=== PATIENT | female | born 1950 | race Caucasian/White ===

== ENCOUNTER 2017-06-20 10:25 | Emergency (ER) | payer OTHER ==
[~2017-06-20] VITALS: Ht 154.9 cm; Wt 174.6 kg
[~2017-06-20 10:25] MED LIST: ADULT LOW DOSE81 MG PO; ADVAIR 250-501 EACH IH; ALBUTEROL INHAL17 GM IH; ALBUTEROL2.5 MG/0.1 IH; ALBUTEROL2.5 MG/31 IH; AMARYL4 MG PO; AVANDIA; BYETTA; CLARITIN10 MG PO; DIOVAN320 MG PO; GLUCOPHAGE1000 MG PO; HUMALOG100 UNIT/1 SQ; LANTUS SC; LEVOXYL200 MCG PO; LORTABELXR PO; METOLAZONE 5 MG5 M1 PO; PREDNISONE50 MG PO; SINGULAIR 10 MG10 M1 PO; ZANTAC 150MG T150 M1 PO; ZETIA10 MG PO; ZPAK PO; [UNRECOGNIZED DRUG - OTHER]
[2017-06-20 11:36] VITALS: BP 153/53
== END 2017-06-20 12:17 | disposition home or self-care (01) ==
LOC: ER 10:25
DX: M25.561 Pain in right knee (principal); Z88.8 Allergy status to other drugs, medicaments and biological substances; J45.909 Unspecified asthma, uncomplicated; E11.9 Type 2 diabetes mellitus without complications; G47.30 Sleep apnea, unspecified; W19.XXXA Unspecified fall, initial encounter; Y93.89 Activity, other specified; Y92.22 Religious institution as the place of occurrence of the external cause; Y99.8 Other external cause status

== ENCOUNTER 2017-06-24 08:31 | Inpatient (IN) | payer OTHER ==
[~2017-06-24] VITALS: Ht 154.9 cm; Wt 170.7 kg
--- NOTE | ~2017-06-24 | EKG ---
[address] [place] [address] ELECTROCARDIOGRAM REPORT Name: PERKINSNELDA Room #: 209- ADM IN M.R.#: [id number] Admission: 06/24/17 Attend Phys: Wesley Meeks DO Discharge: Date of : 50 Report #: [id number] THIS REPORT FOR: //name// [facility] Test Date: 2017-06-25 Test Time: 09:25:08 Pat Name: NELDA PERKINS Department: Room: 209 P Gender: F Die Maker Trim: MILLI : 1950 Requested By: John Croft Order Number: [id number] MD: John Croft Measurements Intervals [place] Rate: 81 P: 74 WA: 195 QRS: 66 QRSD: 99 T: 33 QT: 393 QTc: 457 Interpretive Statements Sinus rhythm Low voltage, precordial leads Compared to ECG 06/24/2017 08:35:16 No significant changes Electronically Signed On 06-25-2017 13:32:53 CDT by John Croft [email or web address] <ELECTRONICALLY SIGNED> By: John Croft MD 06/25/17 1332 4 4 John Croft MD /SALMA
--- NOTE | ~2017-06-24 | HC ---
[facility] [place] [address] CONSULTATION Name: NELDA PERKINS Room #: 209-P [facility] IN .R.#: [id number] Admission: 06/24/17 Attend Phys: Wesley Meeks DO Discharge: Date of : 50 Report #: [id number] THIS REPORT FOR: //name// CC: Wesley Ramos Tree Amos DATE OF SERVICE: 06/28/2017 REASON FOR CONSULTATION: Elevated creatinine. HISTORY OF PRESENT ILLNESS: This is a 66-year-old patient with massive obesity, diabetes mellitus, hypoventilation with right-sided heart failure and cor pulmonale. She presented with shortness of breath, was felt to be a left-sided failure as well, was treated with diuretics. Creatinine, which was 1.2, krystian to 1.8 and we are called for consultation. HOME MEDICATIONS: Include albuterol, aspirin 81 mg daily, Byetta, Zetia 10 mg daily, Advair, glimepiride 4 mg daily, hydrocodone, insulin, Levoxyl 0.2 mg daily, metformin 2000 mg daily, Suboxone 5 mg daily, Singulair 10 mg daily, prednisone, ranitidine 150 mg daily, Avandia 4 mg b.i.d. and valsartan 320 mg daily. PAST MEDICAL HISTORY: She has had a cervical spine disease and she had surgery and a titanium plate. She has had the asthma, obstructive sleep apnea, diabetes, hypertension and some glaucoma. She has also had carpal tunnel surgery. SOCIAL HISTORY: No cigarettes or alcohol. Lives with her . FAMILY HISTORY: Negative for renal disease. REVIEW OF SYSTEMS: GENERAL: She has been weak and having a lot of pain in her legs. EYES: Her vision has been okay. ENT: Hearing okay, swallows okay. No mouth ulcers. ENDOCRINE: Positive for the diabetes or thyroid disease. RESPIRATORY: Very easily short-winded with wheezing and asthma. CARDIAC: Absolutely no chest pain. She does have swelling and edema. GASTROINTESTINAL: Denies nausea, vomiting or diarrhea. GENITOURINARY: No dysuria, but apparently was diagnosed with a urinary tract infection. MUSCULOSKELETAL: Weakness and pain in the legs, particularly the right leg. PSYCHIATRIC: Denies depression or anxiety. [facility] [address] [place] [address] CONSULTATION Name: NELDA PERKINS Room #: 209-P [facility] IN .R.#: [id number] Admission: 06/24/17 Attend Phys: Wesley Meeks DO Discharge: Date of : 50 Report #: [id number] PHYSICAL EXAMINATION: GENERAL: Massive obesity. SKIN: Unremarkable. HEENT: Extraocular movements are full. Vision intact. No scleral icterus. Hearing intact. NECK: Supple. CHEST: Clear to auscultation. HEART: Regular. ABDOMEN: Soft, very obese. EXTREMITIES: Show brawny lymphedema ____. LABORATORY DATA: Hemoglobin 9.9. Sodium 128, potassium 3.9, chloride 91, bicarbonate 30, creatinine 1.8, BUN 42. Creatinine initially was 1.2. Urinalysis did not show proteinuria on admission. ASSESSMENT AND PLAN: 1. Elevated creatinine. The creatinine is up with fairly aggressive diuresis. She is on losartan and as she is diuresing and with right-sided failure, slightly decreased renal refusing contributing to elevated creatinine. The ARB is on hold. The diuretics are on hold. Gentle IV fluids are being given. I suspect the creatinine will come down. I will check paraprotein and urine protein studies for completeness. 2. Severe asthma. 3. Obstructive sleep apnea. 4. Longstanding diabetes mellitus. 5. Massive obesity. 6. Hypertension. <ELECTRONICALLY SIGNED> By: Jonathan Quintero MD 06/30/17 1045 1230 1434 Jonathan Quintero MD /nt
--- NOTE | ~2017-06-24 | EKG ---
[place] [address] [place] [address] ELECTROCARDIOGRAM REPORT Name: PERKINSNELDA Room #: [facility]#: [id number] Admission: 06/24/17 Attend Phys: Discharge: Date of : 50 Report #: [id number] THIS REPORT FOR: //name// [facility] ED Test Date: 2017-06-24 Test Time: 08:35:16 Pat Name: NELDA PERKINS Department: Room: Gender: F Fisher [place]: [facility] : 1950 Requested By: Order Number: [id number] MD: John Croft Measurements Intervals [place] Rate: 64 P: 49 CT: 218 QRS: 66 QRSD: 108 T: 17 QT: 440 QTc: 454 Interpretive Statements Sinus rhythm Borderline prolonged CT interval Low voltage, precordial leads Compared to ECG 12/31/2008 18:02:05 Low QRS voltage now present Electronically Signed On 06-24-2017 9:58:44 CDT by John Croft [email or web address] <ELECTRONICALLY SIGNED> By: John Croft MD 06/24/17 0958 0835 4 John Croft MD /SALMA
--- NOTE | ~2017-06-24 | HC ---
[facility] [place] [address] CONSULTATION Name: NELDA PERKINS Room #: 209-P [facility] IN ..#: [id number] Admission: 06/24/17 Attend Phys: Wesley Meeks DO Discharge: Date of : 50 Report #: [id number] THIS REPORT FOR: //name// CC: Wesley Ramos Tree Amos DATE OF SERVICE: 06/29/2017 INFECTIOUS DISEASE CONSULTATION REASON FOR CONSULTATION: Positive blood culture. HISTORY OF PRESENT ILLNESS: This is a 66-year-old white woman admitted with difficulty in breathing. She is diuresed with prerenal azotemia and workup has included urine culture that revealed greater than 100,000 of E. coli and admission blood cultures turns positive with gram-positive cocci in 1 out of 2 samples today and ID opinion is requested. The patient is feeling better. She is off supplemental oxygen. She is receiving some intravenous fluids. She is scheduled for cardiac catheterization by Dr. Lopes. She denies having had any significant fevers and she only had minimal urethral dysuria. No systemic symptoms to suggest acute pyelonephritis. She already has received Rocephin for this question cystitis. DRUG ALLERGIES: FLUTICASONE AND SOLU-MEDROL. PAST MEDICAL HISTORY: Cervical spine disease, surgery and Titanium plates. Bronchial asthma. Obstructive sleep apnea. Hypertension. Glaucoma. Morbid obesity. Diabetes mellitus. MEDICATIONS: The patient is currently on treatment with insulin lispro per sliding scale, levothyroxine, Atrovent, albuterol inhalation treatments, nystatin topical 3 times daily, p.r.n. glucose and Glucagon. On admission, she was hypoglycemic. Metformin has been put on hold in view of azotemia. She has received Rocephin on the , and and obviously it is continued, but we will stop it today. She has received metolazone and losartan. SOCIAL HISTORY: See H and P and old records. FAMILY HISTORY: See H and P and old records. REVIEW OF SYSTEMS: As above. PHYSICAL EXAMINATION: GENERAL: Morbidly obese woman, not toxic looking, afebrile since admission. [facility] [address] [place] [address] CONSULTATION Name: NELDA PERKINS Room #: 209-P [facility] IN ..#: [id number] Admission: 06/24/17 Attend Phys: Wesley Meeks DO Discharge: Date of : 50 Report #: [id number] VITAL SIGNS: Temperature 98.4, pulse 80, respirations 18 and BP 174/66. Height 5 feet 1 inch and weight 379 pounds; on admission, it was 386 pounds. HEENT: Within range. NECK: Short, supple. Difficult to examine. BREAST EXAMINATION: Deferred. LUNGS: Clear to auscultation on anterior and posterior lung crooks. HEART: Regular rate and rhythm. No gallop or murmur. ABDOMEN: Soft. No masses or megaly. PELVIC AND RECTAL EXAMINATION: Deferred. EXTREMITIES: No pretibial edema. LABORATORY DATA: On admission, her sugar is 64, BUN 26 and creatinine 1.2. BUN goes up to 42 and creatinine 1.8 yesterday. Today's creatinine is 1.6 mg/dL. On admission, WBC 7.6, hemoglobin 10.7 and platelets 397,000. Repeat CBC revealed hemoglobin has dropped to 9.9 g/dL, the differential is normal. The urinalysis on admission revealed 4-10 squamous epithelial cells and microscopic hematuria and bacteriuria. ABGs on admission, pH of 7.41, pCO2 of 38, pO2 of 55 and bicarbonate 24.2. These set of gases are on room air. The patient had an echocardiogram on 06/24 and this revealed left ventricle of normal size, right ventricle not well visualized, mitral valve not well visualized. It is essentially a technically less than ideal echocardiogram. Her EKG revealed low voltage and essentially unchanged compared to previously. RADIOLOGY EVALUATION: Venous Doppler, legs, negative for DVT. V/Q scan, low-probability pulmonary embolism. Chest x-ray revealed cardiomegaly and improvement of pulmonary infiltrate -- pulmonary edema. MICROBIOLOGY DATA: Blood cultures obtained on 06/24, 1 out of 2 samples reported positive with gram-positive cocci today. I suspect this is a contaminant since it took 4 days to start showing growth. The urine culture revealed 2 morphotypes of E. coli, both sensitive to Rocephin. ASSESSMENT: 1. Single positive blood cultures, suspect contaminant. 2. Question asymptomatic bacteriuria versus mild cystitis - treated. 3. Congestive heart failure with over-diuresis. 4. Morbid obesity. 5. Acute kidney injury, improving azotemia. 6. Hypertension. 7. Hypoglycemia. 8. Diabetes mellitus. SUGGESTIONS AND RECOMMENDATIONS: For the time being, suspect no further workup as far as single positive blood culture is indicated and I suspect this is a contaminant. Should she have asymptomatic bacteriuria, appears to be a moot point, she might be having low-grade cystitis and we must consider this treated. [facility] [address] [place] [address] CONSULTATION Name: NELDA PERKINS Room #: 209-P ADM IN M.R.#: [id number] Admission: 06/24/17 Attend Phys: Wesley Meeks DO Discharge: Date of : 50 Report #: [id number] We will discontinue Rocephin. Dr. Hutchinson and Dr. Croft, thank you for requesting my suggestions in the care of your patient. <ELECTRONICALLY SIGNED> By: Anjel Croft MD 06/30/17 1143 1102 1334 Anjel Croft MD /nt
--- NOTE | ~2017-06-24 | 2DMMODE ---
[facility] [place] [address] 2 D/M-MODE ECHOCARDIOGRAM Name: NELDA PERKINS Room #: 209-P [facility] IN ..#: [id number] Admission: 06/24/17 Attend Phys: Wesley Meeks, Discharge: Date of : 50 Date of Service: 06/24/17 1237 Report #: [id number] THIS REPORT FOR: //name// APPROVED REPORT Study performed: 06/24/2017 11:41:52 EXAM: Comprehensive 2D, Doppler, and color-flow Echocardiogram Patient Location: Bedside Room #: 209 Status: routine BSA: 2.51 HR: 73 bpm BP: 136/83 mmHg Other Information Study Quality: Technically Limited Indications Diabetes Dyspnea Hypertension/HDD Echo Enhancing Agent Indication: Endocardial border delineation Agent(s) / Amount(s) Used: Optison 6 cc 2D Dimensions IVC: 13.00 mm Aortic Valve AoV Peak Tyrese.: 1.96 m/s AO Peak Gr.: 15.32 mmHg Mitral Valve E/A Ratio: 0.9 MV Decel. Time: 283.43 ms MV E Max Tyrese.: 1.19 m/s MV A Tyrese.: 1.34 m/s MV PHT: 82.20 ms Tricuspid Valve TR Peak Tyrese.: 2.31 m/s TR Peak Gr.: 21.33 mmHg PA Pressure: 26.00 mmHg [facility] [address] [address] 2 D/M-MODE ECHOCARDIOGRAM Name: NELDA PERKINS Room #: 209-P ADM IN .R.#: [id number] Admission: 06/24/17 Attend Phys: Wesley Meeks, Discharge: Date of : 50 Date of Service: 06/24/17 1237 Report #: [id number] Left Ventricle The left ventricle is normal size. There is normal left ventricular wall thickness. The left ventricular systolic function is normal. The left ventricular ejection fraction is within the normal range. LVEF is 60-65%. Right Ventricle Right ventricle is not well visualized. Appears normal. Right ventricular systolic function is grossly normal. Atria Left atrium is not well visualized. Right atrium size is normal. Aortic Valve The aortic valve is not well visualized. No aortic regurgitation is present. There is no aortic valvular stenosis. Mitral Valve Mitral valve is not well visualized. There is no mitral valve regurgitation noted. No evidence of mitral valve stenosis. Tricuspid Valve Tricuspid valve is not well visualized. There is no pulmonary hypertension. Estimated PAP 26 mmHg. Pulmonic Valve Pulmonic valve is not visualized. Great Vessels Aortic root is not well visualized. IVC is normal in size and collapses >50% with inspiration. Pericardium No pericardial effusion. <Conclusion> The left ventricle is normal size. LVEF is 60-65%. Right ventricle is not well visualized. Appears normal. Left atrium is not well visualized. The aortic valve is not well visualized. Mitral valve is not well visualized. Tricuspid valve is not well visualized. Pulmonic valve is not visualized. [facility] [address] [place] [address] 2 D/M-MODE ECHOCARDIOGRAM Name: NELDA PERKINS Room #: 209-P [facility] IN ..#: [id number] Admission: 06/24/17 Attend Phys: Wesley Meeks, Discharge: Date of : 50 Date of Service: 06/24/171236 Report #: [id number] There is no pulmonary hypertension. Estimated PAP 26 mmHg. No pericardial effusion. <ELECTRONICALLY SIGNED> By: Vazquez Spencer MD 06/24/17 1237 36 36 Vazquez Spencer MD /INF
--- NOTE | ~2017-06-24 | HC ---
[facility] [place] [address] CONSULTATION Name: NELDA PERKINS Room #: 209-P [facility] IN M.R.#: [id number] Admission: 06/24/17 Attend Phys: Wesley Meeks DO Discharge: Date of : 50 Report #: [id number] THIS REPORT FOR: //name// CC: Wesley Ramos Tree Amos DATE OF SERVICE: 06/29/2017 HISTORY OF PRESENT ILLNESS: The patient is a 66-year-old white female admitted with a history of shortness of breath, diaphoresis, noted to have a blood sugar of 34. She was diagnosed with non-ST elevation FL. She was noted to have a congestive heart failure. She does have morbid obesity with a weight of 379 pounds, height 5 feet 1 inch. She has 1 positive blood culture out of 2 and there is note of a urinary tract infection and infectious disease is involved. She also has a thyroid mass with noted hypothyroidism and has acute renal insufficiency. She is to undergo a cardiac catheterization later today. We are seeing her in rehabilitation medicine consultation. PAST MEDICAL HISTORY: CHF, asthma, diabetes mellitus, hypertension, obstructive sleep apnea, morbid obesity. PAST SURGICAL HISTORY: Also includes a tonsillectomy, carpal tunnel, ganglion cyst removed. MEDICATIONS: Please see the full medication listing. HABITS: No history of tobacco or alcohol abuse. SOCIAL HISTORY: Lives in her house with her , 3 steps in, can stay on one floor. Used a roller walker, especially outside of the house and utilized a cane inside the house. She was noted to be independent with ADLs from the waist up and needed some assistance with lower extremity dressing. REVIEW OF SYSTEMS: No current complaints of chest pain, shortness of breath or abdominal discomfort. She has had some knee pain and was seen in the Emergency Department on 06/20/2017, for right knee pain. She does have moderate osteoarthritis without osseous abnormality and was treated with rest, ice, compression and elevation. She notes that her knee pain is gradually improving. No other focal extremity pain complaints at this time. PHYSICAL EXAMINATION: GENERAL: The patient is a morbidly obese 66-year-old white female in no obvious distress. Above noted height and weight. VITAL SIGNS: She has a temperature of 98.4, pulse 80, respirations 18, blood pressure 174/66. Facies are symmetric. [address] [address] CONSULTATION Name: NELDA PERKINS Room #: 209-P ADM IN M.R.#: [id number] Admission: 06/24/17 Attend Phys: Wesley Meeks DO Discharge: Date of : 50 Report #: [id number] NEUROLOGIC: Functional range of motion of both upper extremities. Strength is a grade 4- to 3+/5. DTRs are trace to 1. Lower extremities, morbid obesity with difficulty with proximal motion with her large abdominal pannus. She has a lot of proximal lower extremity adiposity. Strength of the lower extremities is a grade 3+ to 4-/5. DTRs are trace to 1. She is mod assist with sit to stand. Gait was 5 steps mod assist with a front-wheeled walker. ASSESSMENT: A 66-year-old white female with the following problem list: 1. Medical complexity with generalized debilitation. 2. Congestive heart failure. 3. Non-ST elevation myocardial infarction. 4. Positive blood culture 1/2 with Infectious Disease involved. 5. Acute renal insufficiency. 6. Thyroid mass with hypothyroidism. 7. Right knee degenerative arthritis. 8. Morbid obesity. 9. History of diabetes mellitus. 10. Hypertension. 11. Obstructive sleep apnea. PLAN: The patient is to be undergoing a cardiac catheterization later today. We are considering her for an acute in-hospital inpatient [address] [place] [address] rehabilitation stay as she further medically stabilizes. We will be glad to follow along with you regarding her rehab therapy needs. Discussion with the patient and her . By: 1030 2049 Jensen Meier MD /PMT
--- NOTE | ~2017-06-24 | HC ---
[facility] [place] [address] CONSULTATION Name: NELDA PERKINS Room #: 209-P [facility] IN M.R.#: [id number] Admission: 06/24/17 Attend Phys: Wesley Meeks DO Discharge: Date of : 50 Report #: [id number] THIS REPORT FOR: //name// CC: Dr. Aquilino Amos MD DATE OF SERVICE: 06/24/2017 REFERRING PROVIDER: Aquilino Cuenca, Emergency Department. REASON FOR CONSULTATION: Shortness of breath. HISTORY OF PRESENT ILLNESS: Our group was asked to see the patient in consultation while hospitalized at [facility]. A 66-year-old woman with a past pulmonary history significant for persistent asthma, typically controlled on Breo and p.r.n. albuterol as well as obstructive sleep apnea, on nocturnal CPAP, has had some increasing shortness of breath over the last few days, states she has been using her albuterol inhaler about 4 times daily with only modest improvement and has also been wearing her CPAP during the daytime due to increasing dyspnea. She noted some increased weight gain with some increased lower extremity edema, also noted some difficulty controlling blood sugars as they have been much lower than usual, states recently been treated for scabies with topical medicine and an oral medication that may have contributed to her current symptoms. Currently, no cough, congestion or wheezing. There was some improvement since diuretics in the emergency department. ALLERGIES: ADVAIR by report. PAST MEDICAL HISTORY: 1. History of persistent asthma. 2. Obstructive sleep apnea. 3. Morbid obesity. 4. Diabetes mellitus type 2. 5. Glaucoma. 6. Hypertension. OUTPATIENT MEDICATIONS: Include p.r.n. albuterol inhaler, p.r.n. albuterol nebulizer, Norvasc 10 mg daily, aspirin 81 mg daily, Byetta 10 mcg daily, glimepiride 4 mg daily, insulin, Xalatan eyedrops, Synthroid 0.3 mg daily, metformin 1000 mg twice daily, metolazone 5 mg daily, Singulair 10 mg daily, Actos 15 mg daily, Pravachol 40 mg daily, Zantac p.r.n., Diovan 320 daily, and [address] [address] CONSULTATION Name: NELDA PERKINS Room #: 209-P [facility] IN ..#: [id number] Admission: 06/24/17 Attend Phys: Wesley Meeks DO Discharge: Date of : 50 Report #: [id number] Breo, which she states she uses in the winter time. PAST SURGICAL HISTORY: Includes carpal tunnel release, cervical spine surgery, and tonsillectomy. SOCIAL HISTORY: Never smoker, no alcohol consumption. Lives with . FAMILY HISTORY: Negative for any significant pulmonary disease. REVIEW OF SYSTEMS: CONSTITUTIONAL: No fevers, chills, or sweats. ENT: No upper respiratory congestion, rhinorrhea, or dysphagia. CARDIOVASCULAR: No chest pains or palpitations. GASTROINTESTINAL: No nausea, vomiting, diarrhea, constipation or abdominal pain. GENITOURINARY: No dysuria, no frequency. INTEGUMENT: Denies any new rash. MUSCULOSKELETAL: Chronic lower extremity weakness and increased pain in the right lower extremity with edema. PHYSICAL EXAMINATION: VITAL SIGNS: Afebrile, pulse 70, respiratory rate 24, blood pressure 136/83, and oxygen saturation 94% on 3 liters. GENERAL: This is a markedly obese elderly woman, does not appear in any distress, lying comfortably in bed. ENT: Mallampati 3 airway. NECK: Thick, supple, no lymphadenopathy. LUNGS: Diminished with no wheezes. CARDIOVASCULAR: Heart is regular. No murmurs noted. ABDOMEN: Obese, soft, nontender, no masses. EXTREMITIES: With 1+ lower extremity edema. LABS: Chest x-ray reveals relatively clear lung crooks, significant cardiomegaly noted with dilated superior vena cava. CBC revealed mild anemia with hemoglobin of 11, otherwise normal. Chemistry profile revealed sodium 135, potassium 4.7, chloride 101, bicarbonate 25, BUN 26, creatinine 1.2, glucose 64. ProBNP 355. Troponin is normal. TSH normal. D-dimer 2.72. Arterial blood gas on room air revealed pH 7.42, pCO2 of 38, pO2 of 55, and bicarbonate 24. IMPRESSION: 1. Acute hypoxemic respiratory failure. 2. Probable diastolic congestive heart failure. 3. Massive obesity. 4. History of obstructive sleep apnea. 5. Asthma with mild exacerbation. [facility] [address] [place] [address] CONSULTATION Name: NELDA PERKINS Room #: 209-P [facility] IN M.R.#: [id number] Admission: 06/24/17 Attend Phys: eWsley Meeks DO Discharge: Date of : 50 Report #: [id number] RECOMMENDATIONS: 1. Await V/Q scan and lower extremity venous Doppler. 2. Bronchodilators. 3. Continue with diuresis. 4. Follow up chest x-ray. 5. Defer diabetic management and hypoglycemic episode to primary providers. Discussed with the patient and her at the bedside. All questions answered. By: 1252 1453 Karri Mayer MD /nt
--- NOTE | ~2017-06-24 | CATHLAB ---
[facility] [address] [place] [address] INVASIVE PROCEDURE REPORT Name: NELDA PERKINS Room #: 209-P ADM IN ..#: [id number] Admission: 06/24/17 Attend Phys: Wesley Meeks, Discharge: Date of : 50 Date of Service: 06/29/17 1712 Report #: [id number] THIS REPORT FOR: //name// APPROVED REPORT Patient Details Patient Status: In-Patient Room #: The patient is a 66 year-old female Event Personnel Maurizio Lopes [employer] Moulder'S Assistant, Gary Forte RN, Char Mensah, Kelley Gamble CVT Monitor Procedures Performed Left Heart Cath w/or w/o Coronaries [id number] [facility] Hemostasis w/ Mynx Art Access - R femoral artery* 90550 Initial Mod Sed Same Phys/QHP Gr5y [id number] 69533 Mod Sed Same Phys/QHP Ea [id number] Indication CHF Current Status: , Dyspnea Risk Factors Hypercholesterolemia, Hypertension Procedure Narrative The patient was brought urgently to the Cardiac Catheterization Laboratory and was prepped and draped in a sterile manner. The right femoral was infiltrated with 1% Lidocaine subcutaneous anesthesia. A PINNACLE 5FR Sheath #[id number] sheath was inserted into the RFA 4FR^. Coronary angiography was performed using coronary diagnostic catheters. The right coronary system was accessed and visualized with a JR 4 catheter. The left coronary system was accessed and visualized with a JL 4 catheter. The left ventricle was accessed and visualized with a JR 4 catheter. Left ventricular/Aortic Valve gradient assessed via catheter pullback. Pre-demployment femoral angiogram was performed . Closure device was deployed with a 5 Fr Mynx. The patient tolerated the procedure well and there were no complications associated with the procedure. There was no hematoma. Intraoperative Conscious Sedation Sedation start time: 12:26 Case end Time: 13:04 Fentanyl 25.0 mcg Versed 1.0 mg Fluoro Time: 3.10 minutes [facility] [address] [place] [address] INVASIVE PROCEDURE REPORT Name: NELDA PERKINS Room #: 209-P [facility] IN ..#: [id number] Admission: 06/24/17 Attend Phys: Wesley Meeks, Discharge: Date of : 50 Date of Service: 06/29/17 1712 Report #: [id number] Dose: DAP 8374.63 cGycm2 1061 mGy Contrast Type and Amount: Visipaque 75 ml Coronary Angiography The patient's coronary anatomy is right dominant. Diagnostic Cath Left Main Large-caliber vessel, no flow limiting LAD moderate size caliber vessel, traveling down the anterior wall and wrapping around the apex. There is mild to moderate disease in the mid segment, 30-40%. Diagonal 1 Small-caliber vessel, severe stenosis in proximal segment, 70%. Recommend medical therapy. Circumflex Moderate size caliber vessel, supplies one obtuse marginal artery. Mild plaquing is noted in the proximal segment, 30%. OM1 Patent, no flow limiting lesions. Right Coronary Dominant vessel, moderate to severe discrete stenosis in the mid segment, 50-70%. Recommend medical therapy. Left Ventriculography Left Ventriculography was not performed. The LVEDP is approximately 18 mmHg and there is no gradient across the outflow tract. Hemodynamics The aortic pressure is 169/66 mmHg with a mean of 109 mmHg. The left ventricular pressure is 173/7 mmHg with a mean of mmHg. The left ventricular end diastolic pressure is 18 mmHg. Conclusion 1. Moderate to severe discrete stenosis in the mid RCA, recommend medical therapy. 2. Mild to moderate disease in the LAD and left circumflex artery. 3. Severe stenosis in a small first diagonal artery. Recommend medical therapy. Recommendations Aggressive Medical Therapy <ELECTRONICALLY SIGNED> By: Maurizio Lopes MD 06/29/171711 11 11 Maurizio Lopes MD /INF
[2017-06-24 08:33] VITALS: BP 142/76
[2017-06-24 09:24] LABS: ABSOLUTE NEUTROPHILS 6.1 thou/uL (1.4-8.2); BASOPHILS 0.6 % (0.0-2.0); EOSINOPHILS 1.6 % (0.0-3.0); HEMATOCRIT 32.9 % (37.0-47.0); HEMOGLOBIN 10.7 gm/dL (12.0-15.0); LYMPHOCYTES 11.6 % (24.0-44.0); MCH 29.3 pg (26.0-34.0); MCHC 32.6 g/dL (28.0-37.0); MCV 89.8 fL (80.0-100.0); MONOCYTES 5.9 % (1.0-8.0); PLATELET COUNT 397 thou/uL (150-400); POLYS 80.3 % (36.0-66.0); RBC 3.66 mil/uL (4.20-5.00); RDW 19.7 % (10.5-14.5); WBC 7.6 thou/uL (4.0-11.0)
[2017-06-24 09:29] LABS: MANUAL DIFF NO
[2017-06-24 09:33] LABS: CALCIUM 8.9 mg/dL (8.5-10.1); CREATININE 1.2 mg/dL (0.6-1.0); POTASSIUM 4.7 mmol/L (3.5-5.1)
[2017-06-24 09:41] LABS: ALBUMIN 3.3 g/dL (3.4-5.0); MAGNESIUM 1.7 mg/dL (1.8-2.4); TOTAL BILIRUBIN 0.5 mg/dL (<0.1-1.0); TOTAL PROTEIN 8.8 g/dL (6.4-8.2); TROPONIN-I 0.06 ng/mL (<0.04-0.07)
[2017-06-24 09:45] LABS: ABG SAMPLE TYPE ARTERIAL; BE(vivo) -0.1 mmol/L (-2 to +3); HCO3 24.2 mmol/L (22.0-26.0); LACTATE 1.39 mmol/L (0.5-2.0); O2(CT) 14.9 mL/dL (15.0-23.0); O2Hb 88.5 % (92.0-98.0); PCO2 38.2 mmHg (35.0-45.0); pH 7.419 (7.360-7.450); sO2 89.3 % (92.0-98.0); tCO2 25.3 mmol/L (24.0-30.0)
[2017-06-24 09:46] LABS: ABG COMMENT PUT ON 2L POST ABG; STICK SITE R.RADIAL
[2017-06-24 09:59] LABS: APTT 26.7 Seconds (24.5-32.8); PROTIME 10.2 Seconds (9.3-11.4)
[2017-06-24 10:30] VITALS: BP 143/100
[2017-06-24 10:53] VITALS: BP 136/83
[2017-06-24 11:27] LABS: URINE BILIRUBIN NEGATIVE (Negative); URINE BLOOD TRACE (Negative); URINE COLOR YELLOW; URINE GLUCOSE-RANDOM* NEGATIVE (Negative); URINE KETONES NEGATIVE (Negative); URINE PROTEIN (DIPSTICK) NEGATIVE (Negative); URINE UROBILINOGEN 0.2 E.U./dl (0.2-1.0)
[2017-06-24 11:29] LABS: URINE LEUKOCYTES-REFLEX 3+ (Negative)
[2017-06-24 11:34] LABS: CASTS None Seen /LPF (None Seen); CRYSTALS None Seen /LPF (None Seen); SQUAMOUS 4-10 Moderate /LPF (0-3)
[2017-06-24 11:35] LABS: URINE RBC 0-2 Rare /HPF (0-2)
[2017-06-24 12:00] VITALS: BP 139/67
[2017-06-24 20:23] VITALS: BP 157/63
[2017-06-24 23:07] VITALS: BP 159/70
[2017-06-25 04:06] VITALS: BP 153/65
[2017-06-25 04:42] LABS: ABSOLUTE NEUTROPHILS 5.2 thou/uL (1.4-8.2); BASOPHILS 0.7 % (0.0-2.0); EOSINOPHILS 3.5 % (0.0-3.0); HEMATOCRIT 30.1 % (37.0-47.0); HEMOGLOBIN 9.7 gm/dL (12.0-15.0); LYMPHOCYTES 15.8 % (24.0-44.0); MCH 29.1 pg (26.0-34.0); MCHC 32.3 g/dL (28.0-37.0); MCV 90.1 fL (80.0-100.0); MONOCYTES 7.8 % (1.0-8.0); PLATELET COUNT 359 thou/uL (150-400); POLYS 72.2 % (36.0-66.0); RBC 3.34 mil/uL (4.20-5.00); RDW 19.9 % (10.5-14.5); WBC 7.2 thou/uL (4.0-11.0)
[2017-06-25 04:43] LABS: MANUAL DIFF NO
[2017-06-25 04:54] LABS: CALCIUM 8.6 mg/dL (8.5-10.1); CREATININE 1.3 mg/dL (0.6-1.0); POTASSIUM 4.6 mmol/L (3.5-5.1)
[2017-06-25 07:30] VITALS: BP 154/58
[2017-06-25 11:13] VITALS: BP 144/60
[2017-06-25 15:22] VITALS: BP 136/47
[2017-06-25 19:42] VITALS: BP 140/52
[2017-06-26 03:31] LABS: ABSOLUTE NEUTROPHILS 4.4 thou/uL (1.4-8.2); BASOPHILS 0.5 % (0.0-2.0); EOSINOPHILS 4.3 % (0.0-3.0); HEMATOCRIT 31.1 % (37.0-47.0); HEMOGLOBIN 9.9 gm/dL (12.0-15.0); LYMPHOCYTES 21.6 % (24.0-44.0); MCH 28.4 pg (26.0-34.0); MCHC 31.9 g/dL (28.0-37.0); MONOCYTES 11.7 % (1.0-8.0); PLATELET COUNT 379 thou/uL (150-400); POLYS 61.9 % (36.0-66.0); RBC 3.49 mil/uL (4.20-5.00); RDW 19.3 % (10.5-14.5); WBC 7.1 thou/uL (4.0-11.0)
[2017-06-26 03:40] LABS: MANUAL DIFF NO
[2017-06-26 03:46] LABS: CALCIUM 8.9 mg/dL (8.5-10.1); CREATININE 1.4 mg/dL (0.6-1.0); POTASSIUM 4.4 mmol/L (3.5-5.1)
[2017-06-26 03:57] VITALS: BP 152/58
[2017-06-26 07:40] VITALS: BP 160/63
[2017-06-26 15:30] VITALS: BP 161/66
[2017-06-26 20:00] VITALS: BP 155/51
[2017-06-26 23:53] VITALS: BP 139/48
[2017-06-27 03:25] VITALS: BP 142/52
[2017-06-27 05:00] LABS: ALBUMIN 3.2 g/dL (3.4-5.0); CALCIUM 9.1 mg/dL (8.5-10.1); CREATININE 1.7 mg/dL (0.6-1.0); PHOSPHORUS 4.4 mg/dL (2.5-4.9)
[2017-06-27 07:39] VITALS: BP 140/49
[2017-06-27 11:18] VITALS: BP 147/49
[2017-06-27 15:21] VITALS: BP 138/82
[2017-06-27 19:42] VITALS: BP 157/61
[2017-06-28 01:52] VITALS: BP 157/61
[2017-06-28 03:39] LABS: ALBUMIN 3.1 g/dL (3.4-5.0); CALCIUM 8.8 mg/dL (8.5-10.1); CREATININE 1.8 mg/dL (0.6-1.0); PHOSPHORUS 4.6 mg/dL (2.5-4.9); POTASSIUM 3.9 mmol/L (3.5-5.1)
[2017-06-28 04:00] VITALS: BP 144/63
[2017-06-28 08:16] VITALS: BP 136/60
[2017-06-28 12:30] VITALS: BP 159/68
[2017-06-28 17:26] VITALS: BP 158/59
[2017-06-28 18:34] LABS: PROT/CREAT RATIO 0.5; URINE CREATININE-RANDOM* 72.9 mg/dL
[2017-06-28 19:56] VITALS: BP 156/58
[2017-06-29] VITALS (9 sets, daily range): BP systolic 121–184; BP diastolic 45–73
[2017-06-29 04:09] LABS: ALBUMIN 3.2 g/dL (3.4-5.0); CALCIUM 8.8 mg/dL (8.5-10.1); CREATININE 1.6 mg/dL (0.6-1.0); PHOSPHORUS 4.1 mg/dL (2.5-4.9); POTASSIUM 3.9 mmol/L (3.5-5.1)
[2017-06-30 03:18] LABS: HEMATOCRIT 30.5 % (37.0-47.0); MCH 29.4 pg (26.0-34.0); MCHC 32.9 g/dL (28.0-37.0); MCV 89.3 fL (80.0-100.0); RBC 3.42 mil/uL (4.20-5.00); RDW 19.3 % (10.5-14.5)
[2017-06-30 03:28] LABS: CALCIUM 8.7 mg/dL (8.5-10.1); CREATININE 1.4 mg/dL (0.6-1.0); PHOSPHORUS 3.6 mg/dL (2.5-4.9); POTASSIUM 3.5 mmol/L (3.5-5.1)
[2017-06-30 04:00] VITALS: BP 143/58
[2017-06-30 07:31] VITALS: BP 116/57
[2017-06-30 07:38] VITALS: BP 138/56
[2017-06-30] MEDS ORDERED: NYAMYC15 GM TOP (10:15)
[2017-06-30] MEDS ORDERED: XALATAN2.5 ML OPHTHALMIC (10:15)
[2017-06-30] MEDS ORDERED: TYLENOL325 MG PO (10:15)
[2017-06-30] MEDS ORDERED: HUMALOG100 UNIT/1 SUBQ (10:15)
[2017-06-30] MEDS ORDERED: DUONEB 2.5-0.5 M3 ML INH (10:15)
[2017-06-30] MEDS ORDERED: ALBUTEROL2.5 MG/0.1 IH (10:15)
[2017-06-30] MEDS ORDERED: METOPROLOL SUCC50 MG PO (10:15)
[2017-06-30] MEDS ORDERED: ENOXAPARIN40 MG/0.1 SUBQ (10:15)
[2017-06-30] MEDS ORDERED: TORSEMIDE20 MG PO (10:22)
[2017-06-30] MEDS ORDERED: COZAAR 25 MG TA25 M1 PO (10:22)
[2017-06-30 10:54] VITALS: BP 149/67
[2017-07-01 04:12] LABS: GLYCOHEMOGLOBIN (HGB A1C) 5.7 % (4.8-5.6)
[2017-07-01 10:08] LABS: A/G RATIO 0.8 (0.7-1.7); ALBUMIN 3.2 g/dL (2.9-4.4); ALPHA 1 0.2 g/dL (0.0-0.4); ALPHA 2 1.1 g/dL (0.4-1.0); BETA 1.2 g/dL (0.7-1.3); GAMMA 1.7 g/dL (0.4-1.8); M-SPIKE Not Observed g/dL (Not Observed)
== END 2017-06-30 11:30 | DRG 280 ==
LOC: ER 08:31 → EROBS 10:23 → 2N 10:23
PROVIDERS: Emergency Medicine; Family Medicine; Hospitalist; Internal Medicine Cardiovascular Disease; Internal Medicine Nephrology
PROC: B2151ZZ Fluoroscopy of Left Heart using Low Osmolar Contrast (ICD-10-PCS; principal; 2017-06-29)
PROC: B2111ZZ Fluoroscopy of Multiple Coronary Arteries using Low Osmolar Contrast (ICD-10-PCS; principal; 2017-06-29)
PROC: 4A023N7 Measurement of Cardiac Sampling and Pressure, Left Heart, Percutaneous Approach (ICD-10-PCS; principal; 2017-06-29)
DX: I21.4 Non-ST elevation (NSTEMI) myocardial infarction (principal); N17.0 Acute kidney failure with tubular necrosis; J96.01 Acute respiratory failure with hypoxia; I50.30 Unspecified diastolic (congestive) heart failure; Z68.45 Body mass index [BMI] 70 or greater, adult; J45.21 Mild intermittent asthma with (acute) exacerbation; I13.0 Hypertensive heart and chronic kidney disease with heart failure and stage 1 through stage 4 chronic kidney disease, or unspecified chronic kidney disease; K21.9 Gastro-esophageal reflux disease without esophagitis; E03.9 Hypothyroidism, unspecified; M17.11 Unilateral primary osteoarthritis, right knee; E11.649 Type 2 diabetes mellitus with hypoglycemia without coma; G47.33 Obstructive sleep apnea (adult) (pediatric); N18.9 Chronic kidney disease, unspecified; I25.10 Atherosclerotic heart disease of native coronary artery without angina pectoris; E11.22 Type 2 diabetes mellitus with diabetic chronic kidney disease; F17.210 Nicotine dependence, cigarettes, uncomplicated; T50.2X5A Adverse effect of carbonic-anhydrase inhibitors, benzothiadiazides and other diuretics, initial encounter; E78.5 Hyperlipidemia, unspecified; E87.6 Hypokalemia; E66.01 Morbid (severe) obesity due to excess calories; H40.9 Unspecified glaucoma; Z79.4 Long term (current) use of insulin; Z79.84 Long term (current) use of oral hypoglycemic drugs; Z79.82 Long term (current) use of aspirin; Z79.899 Other long term (current) drug therapy; Y92.89 Other specified places as the place of occurrence of the external cause; Z71.6 Tobacco abuse counseling; Z88.8 Allergy status to other drugs, medicaments and biological substances; Z28.21 Immunization not carried out because of patient refusal
CPT/HCPCS: 10081

== ENCOUNTER 2017-06-30 10:12 | Inpatient (IN) | payer OTHER ==
[~2017-06-30] VITALS: Ht 154.9 cm; Wt 170.8 kg
--- NOTE | ~2017-06-30 | H ---
[facility] [place] [address] [place] [address] HISTORY AND PHYSICAL Name: NELDA PERKINS Room #: 511-P ADM IN M.R.#: [id number] Admission: 06/30/17 Attend Phys: Jensen Meier MD Discharge: Date of : 50 Report #: [id number] THIS REPORT FOR: //name// CC: Jensen Ramos DATE OF SERVICE: 06/30/2017 HISTORY AND PHYSICAL/POST-ADMISSION PHYSCIAN EVALUATION HISTORY OF PRESENT ILLNESS: A 66-year-old white female originally admitted to [facility] with shortness of breath, diaphoresis, noted to have a blood sugar of 34. She was diagnosed with non-ST elevation LA. She was noted to have congestive heart failure. She does have morbid obesity. She had 1 positive blood culture out of 2 and there was note of a urinary tract infection and Infectious Disease has been involved. She also was noted to have a thyroid mass with noted hypothyroidism and was noted to have acute renal insufficiency. She underwent cardiac catheterization with a plan for medical management. She was noted to have medical complexity with generalized debilitation and has now been admitted for acute in-hospital inpatient rehabilitation. PAST MEDICAL HISTORY: CHF, asthma, diabetes mellitus, hypertension, obstructive sleep apnea, morbid obesity. PAST SURGICAL HISTORY: Includes carpal tunnel, ganglion cyst removed and tonsillectomy. MEDICATIONS: Please see the full medication listing. Each of these was individually reconciled upon admission and includes vitamins, herbals and supplements. HABITS: No history of tobacco or alcohol abuse. SOCIAL HISTORY: Lives in a house with her , three steps in, can stay on one floor. She used a roller walker, especially outside of the house and utilized a cane inside the house. She was noted to be independent with ADLs and needed some assistance with lower extremity dressing. REVIEW OF SYSTEMS: No current complaints of chest pain, shortness of breath, abdominal discomfort. She does have some right leg pain which she notes is some ligament problem between the knee and ankle. She did have x-rays that showed evidence of some right knee degenerative arthritis during this last hospitalization. She indicates that the discomfort is gradually improving. No other focal extremity pain complaints at this time. PHYSICAL EXAMINATION: [address] [address] HISTORY AND PHYSICAL Name: NELDA PERKINS Room #: 511-P [facility] IN [facility].#: [id number] Admission: 06/30/17 Attend Phys: Jensen Meier MD Discharge: Date of : 50 Report #: [id number] GENERAL: Morbidly obese white female noted to be 379 pounds, height 5 feet 1 inch at last weighing during the prior hospitalization. HEENT: Appeared to be benign. VITAL SIGNS: Temperature 97.8, pulse 81, respirations 18, blood pressure 149/67. Facies are symmetric. CHEST: Sounded clear to auscultation. CARDIAC: Regular rate and rhythm. ABDOMEN: Obese with a large abdominal pannus, bowel sounds positive. EXTREMITIES: She has functional range of motion of both upper extremities. Strength is grade 3+ to 4-/5. DTRs are trace to 1. Lower extremities, some difficulty with proximal movement of her legs with her large abdominal pannus and considerable proximal lower extremity adiposity. Strength of the lower extremities is grade 3+ to 4-. DTRs are trace to 1. She has been mod assist with basic sit to stand at short distance ambulation. ASSESSMENT: A 66-year-old white female with the following problem list: 1. Medical complexity with generalized debilitation. 2. Congestive heart failure. 3. Non-ST elevation myocardial infarction. 4. Positive blood cultures 1 out of 2 with Infectious Disease involved. 5. Acute renal insufficiency. 6. Thyroid mass with hypothyroidism. 7. Right knee degenerative arthritis. 8. Morbid obesity. 9. History of diabetes mellitus. 10. Hypertension. 11. Upper obstructive sleep apnea. PLAN: The patient is admitted for an acute in-hospital inpatient rehabilitation stay. From a post-admission physician evaluation perspective, there are no relevant changes since the preadmission screening. Please see the above review of prior and current medical and functional conditions and comorbidities. Please see the patient's previous and current functional status. As far as risk of complications, there are multiple medical comorbidities as noted above. Initial plan of care involves the interdisciplinary acute inpatient rehabilitation program with the goal of maximizing the patient's functional independence, so that she can hopefully return back to her prior living situation. Prognosis is reasonably good with estimated length of stay probably at least 10 days to 2 weeks and likely longer. Potential barriers would include the multiple medical comorbidities and decreased functional status. The patient meets diagnostic criteria for an acute in-hospital inpatient rehabilitation stay. She meets medical necessity criteria. We will have the multiple warehouse consultant physicians continue to monitor. [address] [address] HISTORY AND PHYSICAL Name: NELDA PERKINS Room #: 511-P [facility] IN M.R.#: [id number] Admission: 06/30/17 Attend Phys: Jensen Meier MD Discharge: Date of : 50 Report #: [id number] ADDENDUM The patient meets medical necessity criteria and we will have the multiple medical consultants follow along during the rehabilitation stay. She does have the tolerance for an acute inpatient rehabilitation stay and has appropriate discharge goals back to the home setting. <ELECTRONICALLY SIGNED> By: Jensen Meier MD 07/06/17 1105 1244 1327 Jensen Meier MD /[facility]
--- NOTE | ~2017-06-30 | PLAN ---
[facility] [place] [address] [place] [address] REHAB UNIT PLAN OF CARE Name: NELDA PERKINS Room #: 511-P ADM IN M.R.#: [id number] Admission: 06/30/17 Attend Phys: Jensen Meier MD Discharge: Date of : 50 Report #: [id number] THIS REPORT FOR: //name// CC: Jensen Ramos DATE OF SERVICE: 07/02/2017 SUBJECTIVE: The patient is seen back today in followup. No new complaints. Last recorded temperature is 97.8, pulse 75, respirations 22, blood pressure is 136/45. The patient is alert. Transfers are min assist with gait min assist to 110 feet with a front-wheeled walker. Stairs are mod assist x 2. In occupational therapy, upper body dressing is supervision with lower body dressing, max assist. ASSESSMENT: 1. Medical complexity with generalized debilitation. 2. Congestive heart failure. 3. Non-ST elevation myocardial infarction. 4. Positive blood cultures one out of 2. 5. Acute renal insufficiency. 6. Thyroid mass with hypothyroidism. 7. Right knee degenerative arthritis. 8. Morbid obesity. 9. History of diabetes mellitus. 10. Hypertension. 11. Obstructive sleep apnea. PLAN: The overall plan of care is based on the preadmission screen, post-admission physician evaluation and information garnered from therapy assessments. 1. Estimated length of stay is probably 10 days or last as she is progressing. 2. Medical prognosis is reasonably good. 3. Anticipated interventions includes the interdisciplinary acute inpatient rehabilitation program with goal of maximizing her functional independence, so that she can return back to her prior living situation. We will have the interdisciplinary acute inpatient rehabilitation program working with PT, OT, rehab nursing assisting regarding medication management, skin care prophylaxis, bowel and bladder issues and nursing education. The successfactors consultant physicians will continue to follow. We will have the interdisciplinary team is involved working with her. 4. Anticipated functional outcomes would be for her to become modified independent at a walker level. 5. Discharge destination would be back home with . 6. Expected therapy by discipline would include PT and OT 1-1/2 hours per day [address] [address] REHAB UNIT PLAN OF CARE Name: NELDA PERKINS Room #: 511-P [facility] IN .R.#: [id number] Admission: 06/30/17 Attend Phys: Jensen Meier MD Discharge: Date of : 50 Report #: [id number] each five days a week throughout the duration of the acute inpatient rehabilitation stay. <ELECTRONICALLY SIGNED> By: Jensen Meier MD 07/06/17 1108 0924 [id number] Jensen Meier MD /[facility]
--- NOTE | ~2017-06-30 | HC ---
[facility] [place] [address] CONSULTATION Name: NELDA PERKINS Room #: 511-P ADM IN M.R.#: [id number] Admission: 06/30/17 Attend Phys: Jensen Meier MD Discharge: Date of : 50 Report #: [id number] THIS REPORT FOR: //name// CC: Jensen Wallerhanie Richard DATE OF SERVICE: 07/04/2017 ATTENDING PHYSICIAN: Jensen Meier MD FURNITURE SALES CONSULTANT: Jaya Burris, PhD CLINICAL PRESENTATION: The patient is a 66-year-old female admitted to the rehab unit at [facility] for comprehensive inpatient rehabilitation program to improve functional mobility and activities of daily living and self-care secondary to deficits from medical complexity and generalized debility. She carries diagnoses of congestive heart failure, non-ST elevation myocardial infarction, positive blood cultures with infectious disease involvement, acute renal insufficiency, thyroid mass with hypothyroidism, right knee degenerative arthritis, morbid obesity, history of diabetes mellitus, hypertension and obstructive sleep apnea. A complete description of her medical condition and history can be found in her medical record. Neuropsychological consultation was requested to provide assistance in the assessment of cognitive and emotional status and to provide recommendations and services. Prior to this most recent admission, she reports being independent with instrumental activities of daily living. She was living with her in their home. 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 The patient has 2 younger siblings. Her brother is reported to have history of alcohol abuse and depression. She also reports her sister to have a history of bipolar disorder. TECHNIQUES UTILIZED: Clinical interview, review of medical records, staff consultation and behavioral observation, mini mental status exam 2 standard version and clock drawing. EXAMINATION FINDINGS: The patient was alert and cooperative with the assessment. She accurately described events surrounding her admission. There is no evidence of aphasia. Her thoughts are logical and goal oriented. She does not report auditory or visual hallucinations. She describes increased anxiety and variability in mood with intermittent depression in regard to concern about her medical condition. Tiredness and fatigue is also noted. She does not report difficulty with sleep or appetite. Her performance on the MMSE 2 brief version was within normal limits with a raw score of 14/16. She was 1/3 for immediate recall of 3 items after a brief time [address] [address] CONSULTATION Name: NELDA PERKINS Room #: 511-P [facility] IN M.R.#: [id number] Admission: 06/30/17 Attend Phys: Jensen Meier MD Discharge: Date of : 50 Report #: [id number] delay and distraction. Her performance on the MMSE 2 standard version was within normal limits with a raw score of 28/30. The patient was able to draw a clock and set the hands at designated time. Her neurocognitive function is within normal limits. However, increased anxiety and intermittent depression are likely in regard to her medical well being and concern her recovery. DIAGNOSTIC IMPRESSION: Adjustment disorder with anxiety and depressed mood. RECOMMENDATIONS: The patient would most likely benefit from psychological counseling and the use of an antidepressant medication upon discharge. Relaxation techniques to assist in the management of anxiety will be helpful. Dietary consult would be a benefit to clarify her understanding of the diet that is necessary for her to maintain weight loss as well as healthy food choices. Thank you very much for allowing me to provide the consultation on this patient. <ELECTRONICALLY SIGNED> By: Jaya Burris, PhD 07/04/17 1509 1425 1444 Jaya Burris, PhD /nt
[2017-06-30] MEDS ORDERED: METOPROLOL SUCC50 MG PO (10:15)
[2017-06-30] MEDS ORDERED: TYLENOL325 MG PO (10:15)
[2017-06-30] MEDS ORDERED: HUMALOG100 UNIT/1 SUBQ (10:15)
[2017-06-30] MEDS ORDERED: ALBUTEROL2.5 MG/0.1 IH (10:15)
[2017-06-30] MEDS ORDERED: DUONEB 2.5-0.5 M3 ML INH (10:15)
[2017-06-30] MEDS ORDERED: XALATAN2.5 ML OPHTHALMIC (10:15)
[2017-06-30] MEDS ORDERED: NYAMYC15 GM TOP (10:15)
[2017-06-30] MEDS ORDERED: ENOXAPARIN40 MG/0.1 SUBQ (10:15)
[2017-06-30] MEDS ORDERED: COZAAR 25 MG TA25 M1 PO (10:22)
[2017-06-30] MEDS ORDERED: TORSEMIDE20 MG PO (10:22)
[2017-06-30 12:15] VITALS: BP 138/49
[2017-06-30 19:56] VITALS: BP 149/53
[2017-07-01 07:02] LABS: HEMATOCRIT 30.2 % (37.0-47.0); HEMOGLOBIN 9.9 gm/dL (12.0-15.0); MCH 29.2 pg (26.0-34.0); MCHC 32.9 g/dL (28.0-37.0); RBC 3.4 mil/uL (4.20-5.00); RDW 19.1 % (10.5-14.5); WBC 7.2 thou/uL (4.0-11.0)
[2017-07-01 07:08] LABS: CALCIUM 9.4 mg/dL (8.5-10.1); CREATININE 1.3 mg/dL (0.6-1.0); POTASSIUM 3.5 mmol/L (3.5-5.1)
[2017-07-01 08:15] VITALS: BP 143/47
[2017-07-01 19:47] VITALS: BP 136/45
[2017-07-02 08:45] VITALS: BP 154/69
[2017-07-02 20:53] VITALS: BP 184/42
[2017-07-02 22:17] VITALS: BP 128/56
[2017-07-03 07:30] VITALS: BP 148/68
[2017-07-03 20:04] VITALS: BP 137/47
[2017-07-04 05:43] LABS: ALBUMIN 3.1 g/dL (3.4-5.0); CREATININE 1.6 mg/dL (0.6-1.0); PHOSPHORUS 3.8 mg/dL (2.5-4.9); POTASSIUM 3.6 mmol/L (3.5-5.1)
[2017-07-04 07:57] VITALS: BP 151/68
[2017-07-04 19:52] VITALS: BP 148/46
[2017-07-05 06:06] LABS: ABSOLUTE NEUTROPHILS 4.5 thou/uL (1.4-8.2); BASOPHILS 0.9 % (0.0-2.0); EOSINOPHILS 3.7 % (0.0-3.0); HEMATOCRIT 28.5 % (37.0-47.0); HEMOGLOBIN 9.7 gm/dL (12.0-15.0); LYMPHOCYTES 19.2 % (24.0-44.0); MCHC 34.1 g/dL (28.0-37.0); MONOCYTES 8.6 % (1.0-8.0); PLATELET COUNT 368 thou/uL (150-400); POLYS 67.6 % (36.0-66.0); RBC 3.24 mil/uL (4.20-5.00); RDW 20.2 % (10.5-14.5); WBC 6.7 thou/uL (4.0-11.0)
[2017-07-05 06:14] LABS: MANUAL DIFF NO
[2017-07-05 06:17] LABS: ALBUMIN 3.3 g/dL (3.4-5.0); CALCIUM 8.9 mg/dL (8.5-10.1); CREATININE 1.5 mg/dL (0.6-1.0); MAGNESIUM 1.5 mg/dL (1.8-2.4); PHOSPHORUS 3.7 mg/dL (2.5-4.9); POTASSIUM 3.4 mmol/L (3.5-5.1)
[2017-07-05 08:30] VITALS: BP 148/78
[2017-07-05 20:24] VITALS: BP 106/36
[2017-07-06 07:05] LABS: CREATININE 1.5 mg/dL (0.6-1.0); MAGNESIUM 1.7 mg/dL (1.8-2.4); POTASSIUM 3.6 mmol/L (3.5-5.1)
[2017-07-06 07:54] VITALS: BP 160/81
[2017-07-06 20:06] VITALS: BP 152/59
[2017-07-07 08:00] VITALS: BP 149/66
[2017-07-07 20:04] VITALS: BP 140/50
[2017-07-08 04:34] LABS: ABSOLUTE NEUTROPHILS 4.1 thou/uL (1.4-8.2); BASOPHILS 0.8 % (0.0-2.0); EOSINOPHILS 3.4 % (0.0-3.0); HEMATOCRIT 29.9 % (37.0-47.0); HEMOGLOBIN 10.4 gm/dL (12.0-15.0); LYMPHOCYTES 24.6 % (24.0-44.0); MANUAL DIFF NO; MCHC 34.9 g/dL (28.0-37.0); MCV 88.8 fL (80.0-100.0); MONOCYTES 10.1 % (1.0-8.0); PLATELET COUNT 389 thou/uL (150-400); POLYS 61.1 % (36.0-66.0); RBC 3.37 mil/uL (4.20-5.00); RDW 20.1 % (10.5-14.5); WBC 6.7 thou/uL (4.0-11.0)
[2017-07-08 04:39] LABS: CALCIUM 8.9 mg/dL (8.5-10.1); CREATININE 1.5 mg/dL (0.6-1.0); MAGNESIUM 1.5 mg/dL (1.8-2.4); POTASSIUM 3.3 mmol/L (3.5-5.1)
[2017-07-08 07:35] VITALS: BP 138/63
[2017-07-08 14:50] VITALS: BP 138/63
[2017-07-08 20:01] VITALS: BP 156/71
[2017-07-09] MEDS ORDERED: IRON325 PO ×2 (07:36→14:12)
[2017-07-09] MEDS ORDERED: NYAMYC15 GM TOP (07:36)
[2017-07-09] MEDS ORDERED: TORSEMIDE20 MG PO (07:36)
[2017-07-09] MEDS ORDERED: HUMALOG100 UNIT/1 SUBQ (07:36)
[2017-07-09] MEDS ORDERED: ALBUTEROL2.5 MG/0.1 IH (07:36)
[2017-07-09] MEDS ORDERED: DUONEB 2.5-0.5 M3 ML INH (07:36)
[2017-07-09] MEDS ORDERED: METOPROLOL SUCC50 MG PO ×2 (07:36→14:12)
[2017-07-09] MEDS ORDERED: LANTUS100 UNIT/M SUBQ (07:36)
[2017-07-09 07:51] VITALS: BP 141/53
[2017-07-09] MEDS ORDERED: ZETIA10 MG PO (14:11)
== END 2017-07-09 14:30 | disposition home health service (06) | DRG 947 ==
LOC: ENTRNSPT 07-09 14:22 → EDTRNSPTSTS 07-09 14:24
PROVIDERS: Hospitalist; Nurse Practitioner; Physical Medicine & Rehabilitation
DX: R53.81 Other malaise (principal); I21.4 Non-ST elevation (NSTEMI) myocardial infarction; Z68.45 Body mass index [BMI] 70 or greater, adult; N17.9 Acute kidney failure, unspecified; E87.1 Hypo-osmolality and hyponatremia; I50.9 Heart failure, unspecified; M17.11 Unilateral primary osteoarthritis, right knee; E66.01 Morbid (severe) obesity due to excess calories; E11.9 Type 2 diabetes mellitus without complications; I11.0 Hypertensive heart disease with heart failure; G47.33 Obstructive sleep apnea (adult) (pediatric); F43.23 Adjustment disorder with mixed anxiety and depressed mood; J45.909 Unspecified asthma, uncomplicated; E78.5 Hyperlipidemia, unspecified; F17.210 Nicotine dependence, cigarettes, uncomplicated; I25.10 Atherosclerotic heart disease of native coronary artery without angina pectoris; E87.6 Hypokalemia; Z88.8 Allergy status to other drugs, medicaments and biological substances; Z71.6 Tobacco abuse counseling; Z90.49 Acquired absence of other specified parts of digestive tract
CPT/HCPCS: 10112

== ENCOUNTER → 2018-08-11 | Outpatient (CLI) | payer OTHER ==
[~2018-08-11] MED LIST changes: +COZAAR 25 MG TA25 M1 PO; +DUONEB 2.5-0.5 M3 ML INH; +ENOXAPARIN40 MG/0.1 SUBQ; +HUMALOG100 UNIT/1 SUBQ; +IRON325 PO; +LANTUS100 UNIT/M SUBQ; +METOPROLOL SUCC50 MG PO; +NYAMYC15 GM TOP; +TORSEMIDE20 MG PO; +TYLENOL325 MG PO; +XALATAN2.5 ML OPHTHALMIC
--- NOTE | ~2018-08-11 | 2DMMODE ---
[facility] [place] [address] 2 D/M-MODE ECHOCARDIOGRAM Name: NELDA PERKINS Room #: REG CL [facility]#: [id number] Admission: 08/11/18 Attend Phys: Maurizio Lopes MD Discharge: Date of : 50 Date of Service: 08/11/18 1613 Report #: [id number] THIS REPORT FOR: //name// APPROVED REPORT Study performed: 08/11/2018 15:12:52 EXAM: Comprehensive 2D, Doppler, and color-flow Echocardiogram Patient Location: Out-Patient Status: routine BSA: 2.47 HR: 75 bpm BP: 152/80 mmHg Other Information Study Quality: Technically Difficult Technically limited study due to body habitus. Indications Congestive Heart Failure Diabetes Echo Enhancing Agent Indication: Endocardial border delineation Agent(s) / Amount(s) Used: Optison 4 cc 2D Dimensions IVSd: 14.71 (7-11mm) LVOT Diam: 22.46 (18-24mm) LVDd: 44.44 mm PWd: 14.98 (7-11mm) Ascending Ao: 30.34 (22-36mm) LVDs: 27.53 (25-40mm) Aortic Root: 31.23 mm IVC: 16.00 mm Volumes Left Atrial Volume (Systole) Single Plane 4CH: 25.34 mL Single Plane 2CH: 42.76 mL LA ESV Index: 14.00 mL/m2 Aortic Valve AoV Peak Tyrese.: 2.42 m/s AO Peak Gr.: 23.50 mmHg LVOT Max P.41 mmHg AO Mean Gr.: 10.90 mmHg LVOT Mean P.06 mmHg AO V2 Mean: 1.49 m/s LVOT Max V: 1.27 m/s [facility] [address] [place] [address] 2 D/M-MODE ECHOCARDIOGRAM Name: NELDA PERKINS Room #: REG [facility]#: [id number] Admission: 08/11/18 Attend Phys: Maurizio Lopes MD Discharge: Date of : 50 Date of Service: 08/11/18 1613 Report #: [id number] AO V2 VTI: 52.16 cm LVOT Mean V: 0.63 m/s DOUG (VTI): 2.77 cm2 LVOT V1 VTI: 36.49 cm DOUG Vmax: 2.07 cm2 SV (LVOT): 144.42 mL Mitral Valve E/A Ratio: 0.8 MV Decel. Time: 234.58 ms MV E Max Tyrese.: 0.84 m/s MV A Tyrese.: 1.10 m/s MV PHT: 68.03 ms IVRT: 107.27 ms Pulmonary Valve PV Peak Tyrese.: 1.04 m/s PV Peak Gr.: 4.31 mmHg Tricuspid Valve RAP Estimate: 5.00 mmHg Left Ventricle The left ventricle is normal size. There is normal left ventricular wall thickness. The left ventricular systolic function is normal. The left ventricular ejection fraction is within the normal range. LVEF is 60-65%. Mild diastolic dysfunction is present (impaired relaxation pattern). Right Ventricle Right ventricle is not well visualized. Right ventricular systolic function could not be assessed. Atria The left atrium size is normal. The right atrium size is normal. Aortic Valve The Aortic valve is sclerotic. No aortic regurgitation is present. There is no aortic valvular stenosis. Mitral Valve The mitral valve is normal in structure. There is no mitral valve regurgitation noted. No evidence of mitral valve stenosis. Tricuspid Valve Tricuspid valve is not well visualized. Unable to assess PA pressure. [address] [address] 2 D/M-MODE ECHOCARDIOGRAM Name: NELDA PERKINS Room #: REG CL [facility]#: [id number] Admission: 08/11/18 Attend Phys: Maurizio Lopes MD Discharge: Date of : 50 Date of Service: 08/11/18 1613 Report #: [id number] Pulmonic Valve Pulmonic valve is not well visualized. There is no pulmonic valvular regurgitation. Great Vessels The aortic root is normal in size. IVC is normal in size and collapses >50% with inspiration. Pericardium There is no pericardial effusion. <Conclusion> The left ventricle is normal size. There is normal left ventricular wall thickness. The left ventricular systolic function is normal. Mild diastolic dysfunction is present (impaired relaxation pattern). Right ventricle is not well visualized. The left atrium size is normal. The Aortic valve is sclerotic. There is no mitral valve regurgitation noted. Tricuspid valve is not well visualized. Unable to assess PA pressure. <ELECTRONICALLY SIGNED> By: Maurizio Lopes MD 08/11/18 1613 12 161 Maurizio Lopes MD /INF
== END ==
LOC: CV 07:31
DX: I50.9 Heart failure, unspecified (principal)

== ENCOUNTER 2019-04-27 15:56 | Inpatient (IN) | payer OTHER ==
[~2019-04-27] VITALS: Ht 154.9 cm; Wt 167.4 kg
--- NOTE | ~2019-04-27 | HC ---
[facility] [place] [address] CONSULTATION Name: NELDA PERKINS Room #: 424-P ADM IN M.R.#: [id number] Admission: 04/27/19 Attend Phys: Rc Spencer MD Discharge: Date of : 50 Report #: [id number] THIS REPORT FOR: //name// CC: Rc Ramos PULMONARY CONSULTATION. REFERRING PHYSICIAN: Dr. Spencer. REASON FOR REFERRAL: Concerns for hypoventilation. HISTORY OF PRESENT ILLNESS: The patient is a 68-year-old female who presents to the ED with progressive edema, erythema and dyspnea. Pulmonary consultation was requested due to concerns for possible hypoventilation. The patient is followed longitudinally in the pulmonary clinic. She was seen by Dr. Tree Amos. She has known moderate persistent asthma along with sleep apnea along with morbid obesity. Her body mass index is around 60. Her previous pulmonary functions from 02/2019 showed FEV1 of 1.16 liters or 57% predicted, FVC measuring 1.4 liters or 55% predicted, FEV1/FVC ratio suggests a restrictive defect. She was doing fairly well until the morning of the presentation. She started to notice increasing swelling, edema and pain. For that reason, she presents to the ED. Otherwise, she denies any recent febrile illness, chest pain, productive cough. PAST MEDICAL HISTORY: As mentioned above, moderate persistent asthma; JONES, on home CPAP; morbid obesity with a body mass index around 70; coronary artery disease; history of heart failure; chronic kidney disease; diabetes mellitus type 2; glaucoma; hypercholesterolemia; hypertension; lymphedema; previous echocardiogram from 2018 showed normal ejection fraction; mild aortic sclerosis. PAST SURGICAL HISTORY: Include prior cardiac catheterization showing disease in the RCA, LAD along with first diagonal. Prior carpal tunnel surgery, cervical spinal surgery, tonsillectomy. ALLERGIES: ADVAIR DISKUS, reactions unspecified. HOME MEDICATIONS: Reviewed. This include ProAir MDI 2 puffs p.r.n., aspirin 81 mg once a day, Lipitor 40 mg once a day, Coreg 25 mg p.o. b.i.d., vitamin D3 supplements, Trulicity injection, Breo Ellipta 100/25 one puff once a day, Amaryl 4 mg p.r.n., Lantus insulin supplements, Humalog insulin supplements, nebulized DuoNeb q. 6 hours p.r.n., Avapro 150 mg day, Xalatan eyedrops 0.005% daily, Synthroid 125 mcg p.o. 2 tablets daily, Singulair 10 mg once a day, [place] [address] CONSULTATION Name: NELDA PERKINS Room #: 424-P [facility] IN M.R.#: [id number] Admission: 04/27/19 Attend Phys: Rc Spencer MD Discharge: Date of : 50 Report #: [id number] 15 mg daily, Zantac 150 mg daily, Demadex 20 mg once a day. FAMILY HISTORY: Notable for diabetes in the mother. Cancer of unknown type in the father. SOCIAL HISTORY: She is . She has never smoked. Denies any alcohol use. REVIEW OF SYSTEMS: As mentioned above, otherwise 10-point system review negative. PHYSICAL EXAMINATION: GENERAL: She is awake, alert, appears to be mildly dyspneic. VITAL SIGNS: Temperature is 98 degrees Fahrenheit, temperature maximum 100.2 degrees Fahrenheit, pulse is 77, respiratory rate is 20, blood pressure is 147 mmHg, and saturation 91%. HEENT: Normocephalic, atraumatic. NECK: Supple, without any lymphadenopathy or thyromegaly. CHEST: Breath sounds are decreased bilaterally due to effort. Few scattered crackles in the bases. No obvious wheezes. CARDIOVASCULAR: Heart sounds are distant. No obvious murmurs or gallop. Pulses are 2+/4+ bilaterally. BREASTS: Deferred. ABDOMEN: Obese, soft, nontender, no organomegaly or masses felt. GENITOURINARY: Deferred. RECTAL: Deferred. EXTREMITIES: Obese, 2+ edema. No cyanosis or clubbing. NEUROLOGIC: Grossly intact. LABORATORY DATA: Portable chest x-ray shows moderate vascular congestion. Otherwise, no consolidation or pleural effusion seen. Venous Doppler ultrasound of the left leg was negative for DVT. TSH was 6.3. Renal ultrasound was nondiagnostic due to body habitus. Sodium 129, potassium 5.2, chloride 96, CO2 of 22, BUN is 87, creatinine 3.7. WBC is 11,700, hemoglobin 9.2, platelets are normal. Arterial blood gas revealed pH 7.29, pCO2 of 40, pO2 of 94 on 2 liters of O2. IMPRESSION: 1. Progressive dyspnea, edema in this 68-year-old morbidly obese white female. Her BMI is about 70. Suspect acute on chronic heart failure. Restrictive ventilatory defect is likely contributing to the patient's symptoms. 2. Morbid obesity, no obvious evidence of hypoventilation syndrome with a normal pCO2, though the patient is at risk given body mass index of 70. 3. Sleep apnea, on CPAP. 4. Chronic kidney disease with mild metabolic acidosis. 5. Moderate persistent asthma, likely contributing to dyspnea. 6. Diabetes mellitus type 2. [facility] [address] [place] [address] CONSULTATION Name: NELDA PERKINS Room #: 424-P [facility] IN ..#: [id number] Admission: 04/27/19 Attend Phys: Rc Spencer MD Discharge: Date of : 50 Report #: [id number] 7. Hypertension. 8. Gastroesophageal reflux disease. RECOMMENDATIONS: We will try BiPAP instead of CPAP to assist with dyspnea. Agree with current medical treatment including diuretics. Continue bronchodilators along with corticosteroids. DVT and GI prophylaxes will be recommended. Based on the current symptoms and comorbid conditions, the patient will greatly benefit from bariatric consultation. Thank you for this consultation. By: [id number] Nixon Yao MD /nt
[2019-04-27 15:57] VITALS: BP 137/93
[2019-04-27] MEDS ORDERED: LIPITOR 20 MG T20 M1 PO (16:34)
[2019-04-27 16:35] LABS: HEMOGLOBIN 10.2 gm/dL (12.0-15.0); MCH 34.3 pg (26.0-34.0); PLATELET COUNT 258 thou/uL (150-400); RBC 2.98 mil/uL (4.20-5.00); RDW 14.7 % (10.5-14.5); WBC 10.5 thou/uL (4.0-11.0)
[2019-04-27] MEDS ORDERED: COREG25 MG PO (16:35)
[2019-04-27] MEDS ORDERED: SYNTHROID125 MC1 PO (16:35)
[2019-04-27] MEDS ORDERED: TRULICITY0.75 MG/0. SUBQ (16:35)
[2019-04-27] MEDS ORDERED: RAYALDEE30 MCG PO (16:36)
[2019-04-27] MEDS ORDERED: BREO ELLIPTA 11 EACH INH (16:36)
[2019-04-27] MEDS ORDERED: LANTUS100 UNIT/M SUBQ (16:37)
[2019-04-27 16:53] VITALS: BP 137/93
[2019-04-27 17:02] LABS: CALCIUM 9.1 mg/dL (8.5-10.1); CREATININE 2.4 mg/dL (0.6-1.0); POTASSIUM 4.4 mmol/L (3.5-5.1)
[2019-04-27 17:10] LABS: MACROCYTES 1+
[2019-04-27 18:21] VITALS: BP 125/77
--- NOTE | 2019-04-27 19:56 | NUR ---
PT ARRIVED FROM ED AT 17:00. ADMISSION ASSESSMENT COMPLETED. A&O,X4. PT COMES FROM HOME WITH . C/O INCREASED WEAKNESS AND REDNESS/SWELLING IN LEFT LOWER CALF. SEVERAL DRIED SCABS, BUG BITES, SCRATCHES NOTED ALL OVER. PANNUS WITH RED, MOIST, ODOR. MORBID OBESITY NOTED. PT USUALLY USES WALKER AT HOME. +1 PITTING EDEMA BLE. AT BEDSIDE. SLEEP APNEA, CPAP AT HOME. END OF SHIFT.
[2019-04-27 20:08] VITALS: BP 132/62
--- NOTE | 2019-04-28 03:41 | NUR ---
ASSUMED CARE OF PT @1900 PT ASSESSED AT START OF SHIFT WITH C/O LOWER EXTREMITIES PAIN AND GENERALIZED WEAKNESS. PT MORBIDLY OBESE AND COMPLAINED OF PAIN WHEN REPOSITIONING NEEDS MAX ASSISTX4. PAIN MEDS GIVEN SEE EMAR. EXTERNAL FEMALE CATHETER IN PLACE FOR TONIGHT FOR OUTPUT. INTER-DRY CLOTH PLACED ON LOWER ABDOMINAL REGION DUE TO MOIST, REDNESS AND ODOR. PT SOB AND LABOR BREATHING RT CALLED AND PT ON CPAP FOR THE NIGHT AND ON 10L ON O2 DUE TO LOW O2 READING OF 83%. POC DONE AND ABX GIVEN WILL CONTINUE TO MONITOR TILL EOS.
[2019-04-28 03:52] VITALS: BP 144/71
[2019-04-28 05:46] LABS: ABSOLUTE NEUTROPHILS 11.2 thou/uL (1.4-8.2); BASOPHILS 0.1 % (0.0-2.0); HEMATOCRIT 27.8 % (37.0-47.0); HEMOGLOBIN 9.2 gm/dL (12.0-15.0); LYMPHOCYTES 1.7 % (24.0-44.0); MCH 34.3 pg (26.0-34.0); MCHC 33.2 g/dL (28.0-37.0); MCV 103.3 fL (80.0-100.0); MONOCYTES 2.5 % (1.0-8.0); PLATELET COUNT 210 thou/uL (150-400); POLYS 95.7 % (36.0-66.0); RBC 2.69 mil/uL (4.20-5.00); RDW 14.4 % (10.5-14.5); WBC 11.7 thou/uL (4.0-11.0)
[2019-04-28 05:57] LABS: CALCIUM 8.8 mg/dL (8.5-10.1); CREATININE 2.4 mg/dL (0.6-1.0); MAGNESIUM 1.8 mg/dL (1.8-2.4); POTASSIUM 4.5 mmol/L (3.5-5.1)
[2019-04-28 07:30] VITALS: BP 131/46
--- NOTE | 2019-04-28 09:41 | NUR ---
RD consult received for pt with BMI 69.8=extreme class III obsesity, and also has dried scabs, scratches to lower extremities-wound care consulted. Hx diabetes, CKD, sleep apnea, COPD. BG 132-143 and A1C pending. At time of visit, pt eating breakfast, tolerating, but very short breath and could not answer questions. Spouse answering for pt-has had recent low BG overnight at home as low as 38. Voiced no questions regarding diet for home. Wt down 7 lb from 2 yrs ago. A1C pending, TSH is high-recommend evaluate. Alerted nurse of pt SOB during conversation. Low nutrition risk
[2019-04-28 15:18] VITALS: BP 109/39
--- NOTE | 2019-04-28 16:43 | NUR ---
ASSESSMENT-PT LIVES AT HOME WITH HER . PT USES A ROLLER WALKER TO GET AROUND AND SPOUSE ASSIST WITH HER ADLS. PT USES A C-PAP AND GETS VERY SOB WITH ANY EXERTION. S/W PT, SPOUSE, HER BROTHER AND NIECE. THEY ARE IN THE PROCESS OF GETTING A WC RAMP BUILT AND THEI SHOULD BE COMPLETED IN 2-3 WEEKS. PT HAS HAD HH IN THE PAST BUT CANNOT REMEMBER THE NAME OF THE AGENCY. SPOUSE DOES THE COOKINING, CLEANING AND LAUNDRY AND PROVIDES TRANSPORT. DISCUSSED SKILLED REHAB WITH THEM & GAVE A SNF LIST. THEY ARE INTERESTED IN [facility]. FAXED REFERRALS TO ALL FACILITIES & ALERTED SPOUSE & BROTHER THAT PT MAY BE READY ON WEDNESDAY. FOLLOWING TO ASSIST WITH DC PLANNING.
--- NOTE | 2019-04-28 16:58 | NUR ---
ASSUMED CARE AT 0700, SHIFT ASSESSMENT DONE, MEDS GIVEN, VSS. REPORTED GENERALIZED PAIN, DOES NOT WANT PAIN MED. ON THE CPAP THIS AFTERNOON, BREATHING HEAVY. RUNNING A LOW GRADE TEMP, TYLENOL GIVEN. WILL CONTINUE TO ASSESS AND ASSIST WITH ADLs NEEDED.
[2019-04-28 19:29] VITALS: BP 95/44
[2019-04-29 00:08] LABS: GLYCOHEMOGLOBIN (HGB A1C) 6.2 % (4.8-5.6)
[2019-04-29 05:28] VITALS: BP 100/47
--- NOTE | 2019-04-29 06:45 | NUR ---
ASSUMED CARE OF PT @1900. PT HAVING INCREASE SOB. ON 4L OF OXYGEN ANS SAT 96%. CXRAY WAS DONE WHICH SHOWED POSSIBLE PNA. A LOADING DOSE OF ZOSYN WAS ADMINISTERED. PT USES CPAP @HOME. ROOMAIR BASELINE. STERIOD WAS STARTED
[2019-04-29 08:44] VITALS: BP 83/60
[2019-04-29 10:15] LABS: CALCIUM 8.3 mg/dL (8.5-10.1); POTASSIUM 5.2 mmol/L (3.5-5.1)
[2019-04-29 10:22] LABS: CREATININE 3.7 mg/dL (0.6-1.0)
[2019-04-29 12:25] LABS: BE(vivo) -6.9 mmol/L (-2 to +3); HCO3 19.1 mmol/L (22.0-26.0); PCO2 40.5 mmHg (35.0-45.0); PO2 94.8 mmHg (80.0-100.0); sO2 96.5 % (92.0-98.0)
[2019-04-29 12:26] LABS: pH 7.292 (7.360-7.450)
--- NOTE | 2019-04-29 15:23 | NUR ---
ASSESMENT COMPLETED. VSS. A/O. PAIN WITH MOVEMENT. SOA W/ EXERTION- RESPONDS WELL WITH RT TX. DENIES NV. PT RESTING IN BED. FEMAL EXT CATH IN PLACE. REPOSITIONED. NO CONCERNS VOICED AT THIS TIME. PAGED DR. PAREDES REGARDING PH RESULTS- WAITING FOR CALL BACK. WILL CONT. TO MONITOR.
[2019-04-29 16:38] LABS: URINE BILIRUBIN NEGATIVE (Negative); URINE BLOOD 3+ (Negative); URINE CLARITY CLEAR; URINE COLOR YELLOW; URINE GLUCOSE-RANDOM* NEGATIVE (Negative); URINE KETONES NEGATIVE (Negative); URINE LEUKOCYTES NEGATIVE (Negative); URINE NITRITE NEGATIVE (Negative); URINE PROTEIN (DIPSTICK) 1+ (Negative); URINE UROBILINOGEN 0.2 E.U./dl (0.2-1.0)
[2019-04-29 16:48] LABS: SQUAMOUS >10 Many /LPF (0-3)
[2019-04-29 16:49] LABS: AMORPHOUS URATES Few /LPF (None Seen); BACTERIA None Seen /HPF (None Seen); CASTS None Seen /LPF (None Seen); URINE RBC 0-2 Rare /HPF (0-2); URINE WBC 0-5 Rare /HPF (0-5)
[2019-04-29 16:50] LABS: PROT/CREAT RATIO 0.8; URINE CREATININE-RANDOM* 118.1 mg/dL
[2019-04-29 17:18] VITALS: BP 140/64
[2019-04-29 20:26] VITALS: BP 147/64
[2019-04-30 04:54] VITALS: BP 147/67
--- NOTE | 2019-04-30 05:11 | NUR ---
ASSESSMENT COMPLETED. PT A&OX4. PT OXYGEN TITRATED DOWN TO 1L. PT HAS A PUREWICK IN PLACE. PT IS A MAX ASSIST. FALL PEC. IN PLACE AND CALL BENDER WITHIN REACH
[2019-04-30 07:21] LABS: HEMATOCRIT 24.5 % (37.0-47.0); HEMOGLOBIN 8.3 gm/dL (12.0-15.0); MCH 35.1 pg (26.0-34.0); MCHC 33.8 g/dL (28.0-37.0); MCV 103.8 fL (80.0-100.0); RBC 2.36 mil/uL (4.20-5.00); WBC 8.9 thou/uL (4.0-11.0)
[2019-04-30 07:36] LABS: ALBUMIN 2.3 g/dL (3.4-5.0); CALCIUM 8.3 mg/dL (8.5-10.1); CREATININE 3.4 mg/dL (0.6-1.0); PHOSPHORUS 5.1 mg/dL (2.5-4.9); POTASSIUM 4.7 mmol/L (3.5-5.1)
[2019-04-30 08:13] VITALS: BP 149/66
--- NOTE | 2019-04-30 11:38 | NUR ---
ASSESMENT COMPLETED. VSS. A/O. DENIES PAIN. SOA W/ EXERTION. NO NOTED SOA. PT RESTING IN BED APPEARS COMFORTABLE. MEDS GIVEN ORDERED. WILL CONT. TO MONITOR.
[2019-04-30 15:51] VITALS: BP 140/58
--- NOTE | 2019-04-30 18:51 | NUR ---
NO CHANGE SINCE AM ASSESMENT. PT RESTING IN BED. BED BATH GIVEN BY PICK PULLING MACHINE OPERATOR THIS EVENING. NO CONCERNS VOICED AT THIS TIME.
[2019-04-30 19:27] VITALS: BP 141/64
[2019-05-01 03:53] VITALS: BP 142/65
--- NOTE | 2019-05-01 04:57 | NUR ---
ASSESSMENT COMPLETED.PT DENIED PAIN SO FAR,ABLE TO MAKE HER NEEDS KNOWN.PT ON IL/NC,CPAP AT HS.PT CONT ON IVF AND IV ABX ORDERED.PT RESTING COMFORTABLY ON HER BED AT THIS TIME.CALL LIGHT WITHIN REACH.
[2019-05-01 07:01] VITALS: BP 135/60
[2019-05-01 08:58] LABS: ALBUMIN 2.2 g/dL (3.4-5.0); CALCIUM 8.3 mg/dL (8.5-10.1); CREATININE 2.9 mg/dL (0.6-1.0); PHOSPHORUS 3.6 mg/dL (2.5-4.9); POTASSIUM 4.5 mmol/L (3.5-5.1)
--- NOTE | 2019-05-01 10:28 | NUR ---
REFERRAL FAXED SATURDAY 04/28 TO [facility] F/U WITH MAURICIO IN ADM SHE DID NOT RECEIVE REFERRAL SO REFERRAL REFAXED AND RECEIVED. SPOKE WITH CARMELINA IN ADM AT [facility] SHE RECEIVED REFERRAL AND IS REQUESTING TODAY'S THERAPY NOTES WHICH DCP FAXED THIS AM. SPOKE WITH BRIDGER IN ADM AT [facility] SHE RECEIVED REFERRAL AND WILL REVIEW. SPOKE AMANDA LUJAN AT [facility] SHE RECEIVED REFERRAL AND WILL DO A BEDSIDE VISIT TODAY ALSO REQUESTED TODAY'S THERAPY NOTES [facility] WAS FAXED THIS AM. DCP TO FOLLOW.
[2019-05-01 15:50] VITALS: BP 140/64
--- NOTE | 2019-05-01 16:01 | NUR ---
PATIENT CONTINUES TO BE MAXIMUM ASSIST WITH ALL ADLS EXCEPT EATING. SHE WAS ABLE TO SIT AT THE SIDE OF THE BED WITH ASSIST X'S 2 DURING PHYSICAL THERAPY. HER OXYGEN SATURATION IS WITHIN NORMAL LIMITS ON ROOM AIR. SHE IS NOT NOTED TO HAVE SOB WHILE SPEAKING. LUNG SOUNDS ARE DIMINISHED, CLEAR TO AUSCULTATION. CLIENT IS INCONTINENT OF BOWEL ET BLADDER. EXTERNAL URINARY CATHETER IS BEING USED. URINE IS NADIA IN COLOR. CLIENT HAS ADEQUATE FLUID ET FOOD INTAKE. 2+ PITTING EDEMA NOTED TO BILATERAL LOWER EXTREMETIES. SKIN IS CLEAN, WARM, DRY ET INTACT. WILL CONTINUE TO MONITOR.
[2019-05-01 19:20] VITALS: BP 142/53
--- NOTE | 2019-05-02 03:44 | NUR ---
The pt. is A/O x 4, discussed her PT progress in the day with dolores. Pt. on room air, has productive cough at times with clear colored sputum. Continues on RT and on IV ABT. Lower extremities wrapped, and painful with movement at times. LE Elevated and pt. repositioned frequently. She slept most of the nite.
[2019-05-02 05:27] VITALS: BP 147/67
[2019-05-02 06:02] LABS: ALBUMIN 2.1 g/dL (3.4-5.0); CALCIUM 8.3 mg/dL (8.5-10.1); CREATININE 2.5 mg/dL (0.6-1.0); PHOSPHORUS 2.9 mg/dL (2.5-4.9); POTASSIUM 4.3 mmol/L (3.5-5.1)
[2019-05-02 07:20] VITALS: BP 143/58
[2019-05-02 09:04] VITALS: BP 143/58
[2019-05-02] MEDS ORDERED: COREG6.25 MG PO (13:44)
[2019-05-02] MEDS ORDERED: KEFLEX500 M1 PO (13:53)
--- NOTE | 2019-05-02 15:39 | NUR ---
PT DISCHARGING TODAY TO [facility] SKILLED STAY. FAXED DC ORDERS/SUMMARY TO FACILITY SPOKE WITH COMPA IN ADM SHE RECEIVED DC ORDERS. NOTIFIED PT'S (FLORINDA) OF DC AND TIME OF TRANSPORT. UNIT NOTIFIED AND CHART COPY PER US. RN TO CALL REPORT TO [phone].
--- NOTE | 2019-05-02 17:05 | NUR ---
UP TO BSC WITH 2 ASSIST, USED GAIT BELT AND WALKER. MOVES VERY SLOWLY AND PIVOTS POORLY. SMEAR OF SOFT BROWN STOOL AND FLATUS. DENIES PAIN. REMOVED EXTERNAL CATH AND PERIPAD APPLIED. SPOUSE AT BEDSIDE. GOOD APPETITE FOR MEALS. IV LEFT BREAST.
--- NOTE | 2019-05-02 18:11 | NUR ---
DISCHARGED TO [facility].
--- NOTE | 2019-05-04 11:03 | HC ---
[facility] [place] [address] CONSULTATION Name: NELDA PERKINS Room #: 424-P [facility] IN .R.#: [id number] Admission: 04/27/19 Attend Phys: Rc Spencer MD Discharge: 05/02/19 Date of : 50 Report #: [id number] THIS REPORT FOR: //name// CC: Rc Ramos NEPHROLOGY CONSULTATION ATTENDING PHYSICIAN: Dr. Spencer. REASON FOR CONSULTATION: Chronic kidney disease. HISTORY OF PRESENT ILLNESS: This 68-year-old patient with longstanding diabetes mellitus and massive obesity, has known chronic kidney disease. She was seen in this hospital, diagnosed with diabetic nephropathy and a half gram of proteinuria 2 years ago. She was lost to follow up, but subsequently followed up with the Nephrology service at [facility]. She was told her estimated GFR was 20 mL per minute and that she would need to start dialysis if it reached 15 mL per minute. She was admitted with lower extremity pain, swelling, and difficulty ambulating. She was found to have cellulitis of the left lower extremity and it is under treatment. Creatinine is 2.4. HOME MEDICATIONS: As listed in her admission include Xalatan eyedrops, DuoNeb and albuterol inhalers, torsemide 20 mg daily, Zetia 10 mg daily, metoprolol succinate 50 mg daily, insulin, ranitidine 150 mg daily, aspirin 81 mg daily, glimepiride 4 mg daily, Singulair 10 mg daily, atorvastatin 20 mg daily. She has carvedilol at 40 mg daily, levothyroxine 125 mcg daily, Trulicity subcutaneously, Breo Ellipta inhaler, Rayaldee 30 mcg daily and apparently was on valsartan, but this was discontinued. SOCIAL HISTORY: No cigarettes or alcohol. Lives at home with her . REVIEW OF SYSTEMS: GENERAL: The patient has a BiPAP on, little difficult to communicate with. EYES: Her vision has been reasonably good. ENT: Hearing okay, swallows okay. No mouth sores or ulcers. ENDOCRINE: Positive for the diabetes and thyroid disease. RESPIRATORY: She does get somewhat easily short of breath. She does have a history of asthma. CARDIAC: No chest pain or angina. She does have lower extremity swelling intermittently. GASTROINTESTINAL: No nausea, vomiting or diarrhea. GENITOURINARY: No dysuria, hematuria or renal stone disease. MUSCULOSKELETAL: She has got the leg pain as mentioned. NEUROLOGIC: No seizure, syncope or stroke. PHYSICAL EXAMINATION: [facility] [address] [place] [address] CONSULTATION Name: NELDA PERKINS Room #: 424-P [facility] IN ..#: [id number] Admission: 04/27/19 Attend Phys: Rc Spencer MD Discharge: 05/02/19 Date of : 50 Report #: [id number] GENERAL: This is a massively obese patient. SKIN: Shows ecchymoses. SKELETAL: Shows massively obese with some lymphedema in dependent areas. HEENT: Extraocular movements are full. No scleral icterus. Hearing and vision intact. BiPAP mask on . NECK: Supple. CHEST: Shows noisy respirations. HEART: Regular, but distant. ABDOMEN: Massively obese and nontender. EXTREMITIES: Show 1+ peripheral edema and the left lower extremity also shows an area of erythema and excoriation towards the ankle. LABORATORY DATA: She had an echocardiogram last year, which showed normal left ventricular ejection fraction and mild diastolic dysfunction. Her hemoglobin is 9.2, white count 11.7, platelets 210. Sodium 134, potassium 4.5, chloride 102, bicarbonate 23, creatinine 2.4, BUN 65. ASSESSMENT AND PLAN: 1. Chronic kidney disease. She has progressive chronic kidney disease, likely this is diabetic nephropathy for which conservative therapy will be indicated. We will need to quantitate her proteinuria and that will help us decide on treatment options. Blood pressure control, blood sugar control and low salt diet all are the mainstays of treatment in patients in this category. Also the cellulitis with inflammation may worsen the process. Hopefully, we can get her stabilized. I believe she already is extracellular fluid overloaded, so more IV saline is probably not in her best interest and I will discontinue that. We will go from there. 2. Cellulitis. 3. Massive obesity. <ELECTRONICALLY SIGNED> By: Jonathan Quintero MD 05/04/19 [id number] Jonathan Quintero MD /nt
== END 2019-05-02 17:53 | DRG 602 ==
LOC: ER 15:56 → 4E 16:14 → EROBS 16:14 → 4E 17:14 → ER 17:14 → 4E 17:15
PROVIDERS: Emergency Medicine; Internal Medicine Nephrology; Nurse Practitioner; ADMIT Hospitalist
PROC: 5A09357 Assistance with Respiratory Ventilation, Less than 24 Consecutive Hours, Continuous Positive Airway Pressure (ICD-10-PCS; principal; 2019-04-29)
PROC: 5A09357 Assistance with Respiratory Ventilation, Less than 24 Consecutive Hours, Continuous Positive Airway Pressure (ICD-10-PCS; 2019-04-30)
PROC: 5A09357 Assistance with Respiratory Ventilation, Less than 24 Consecutive Hours, Continuous Positive Airway Pressure (ICD-10-PCS; 2019-05-01)
PROC: 5A09357 Assistance with Respiratory Ventilation, Less than 24 Consecutive Hours, Continuous Positive Airway Pressure (ICD-10-PCS; 2019-05-02)
DX: L03.116 Cellulitis of left lower limb (principal); N17.0 Acute kidney failure with tubular necrosis; I50.33 Acute on chronic diastolic (congestive) heart failure; I13.0 Hypertensive heart and chronic kidney disease with heart failure and stage 1 through stage 4 chronic kidney disease, or unspecified chronic kidney disease; E87.1 Hypo-osmolality and hyponatremia; Z68.44 Body mass index [BMI] 60.0-69.9, adult; E66.2 Morbid (severe) obesity with alveolar hypoventilation; E87.2 Acidosis; L03.115 Cellulitis of right lower limb; E86.0 Dehydration; E11.22 Type 2 diabetes mellitus with diabetic chronic kidney disease; N18.9 Chronic kidney disease, unspecified; R26.2 Difficulty in walking, not elsewhere classified; J44.9 Chronic obstructive pulmonary disease, unspecified; G56.00 Carpal tunnel syndrome, unspecified upper limb; J45.40 Moderate persistent asthma, uncomplicated; D63.8 Anemia in other chronic diseases classified elsewhere; K21.9 Gastro-esophageal reflux disease without esophagitis; E11.40 Type 2 diabetes mellitus with diabetic neuropathy, unspecified; E11.319 Type 2 diabetes mellitus with unspecified diabetic retinopathy without macular edema; Z79.4 Long term (current) use of insulin; Z79.899 Other long term (current) drug therapy; Z79.51 Long term (current) use of inhaled steroids; Z91.81 History of falling; Z88.9 Allergy status to unspecified drugs, medicaments and biological substances; Z79.1 Long term (current) use of non-steroidal anti-inflammatories (NSAID)
CPT/HCPCS: 10084; 10183

== ENCOUNTER 2019-08-01 14:14 | Inpatient (IN) | payer OTHER ==
[~2019-08-01] VITALS: Ht 149.9 cm; Wt 181.9 kg
[~2019-08-01 14:14] MED LIST changes: +BREO ELLIPTA 11 EACH INH; +COREG25 MG PO; +COREG6.25 MG PO; +KEFLEX500 M1 PO; +LIPITOR 20 MG T20 M1 PO; +RAYALDEE30 MCG PO; +SYNTHROID125 MC1 PO; +TRULICITY0.75 MG/0. SUBQ
[2019-08-01 14:15] VITALS: BP 112/38
[2019-08-01 15:38] LABS: ABSOLUTE NEUTROPHILS 4.9 thou/uL (1.4-8.2); BASOPHILS 0.4 % (0.0-2.0); HEMATOCRIT 26.5 % (37.0-47.0); HEMOGLOBIN 8.6 gm/dL (12.0-15.0); LYMPHOCYTES 10.8 % (24.0-44.0); MCHC 32.5 g/dL (28.0-37.0); MCV 98.6 fL (80.0-100.0); MONOCYTES 4.9 % (1.0-8.0); PLATELET COUNT 261 thou/uL (150-400); POLYS 80.9 % (36.0-66.0); RBC 2.69 mil/uL (4.20-5.00); RDW 18.4 % (10.5-14.5)
[2019-08-01 15:45] LABS: CALCIUM 8.9 mg/dL (8.5-10.1); CREATININE 2.8 mg/dL (0.6-1.0)
[2019-08-01 15:50] LABS: ALBUMIN 2.5 g/dL (3.4-5.0); TOTAL BILIRUBIN 0.3 mg/dL (<0.1-1.0); TOTAL PROTEIN 8.5 g/dL (6.4-8.2)
[2019-08-01 15:59] LABS: URINE BILIRUBIN NEGATIVE (Negative); URINE BLOOD 1+ (Negative); URINE COLOR YELLOW; URINE GLUCOSE-RANDOM* NEGATIVE (Negative); URINE KETONES NEGATIVE (Negative); URINE NITRITE-REFLEX NEGATIVE (Negative); URINE PROTEIN (DIPSTICK) NEGATIVE (Negative); URINE UROBILINOGEN 0.2 E.U./dl (0.2-1.0)
[2019-08-01 16:00] LABS: URINE CLARITY SL HAZY; URINE LEUKOCYTES-REFLEX 3+ (Negative)
[2019-08-01 16:02] LABS: SQUAMOUS 4-10 Moderate /LPF (0-3)
[2019-08-01 16:03] LABS: CASTS None Seen /LPF (None Seen); CRYSTALS None Seen /LPF (None Seen); URINE RBC 3-10 Few /HPF (0-2); URINE WBC-REFLEX 0-5 Rare /HPF (0-5)
[2019-08-01] MEDS ORDERED: AMARYL4 MG PO (16:05)
[2019-08-01] MEDS ORDERED: IRBESARTAN150 MG PO (16:05)
[2019-08-01] MEDS ORDERED: PIOGLITAZONE15 MG (16:06)
[2019-08-01] MEDS ORDERED: HUMALOG100 UNIT/1 SUBQ (16:06)
[2019-08-01 16:20] LABS: AMP/METHAMP Negative (Negative); BARBITURATES Negative (Negative); BENZODIAZEPINES Negative (Negative); COCAINE Negative (Negative); METHADONE Negative (Negative); OPIATES Negative (Negative); PCP Negative (Negative)
[2019-08-01 16:25] LABS: MAGNESIUM 2.4 mg/dL (1.8-2.4); TROPONIN-I <0.06 ng/mL (<0.06)
--- NOTE | 2019-08-01 16:50 | EKG ---
[address] [place] [address] ELECTROCARDIOGRAM REPORT Name: MADDIENELDADORI SUH [facility] [id number] Admission: 08/01/19 Attend Phys: Discharge: Date of : 50 Report #: [id number] THIS REPORT FOR: //name// [facility] ED Test Date: 2019-08-01 Test Time: 16:47:04 Pat Name: NELDA PERKINS Department: Room: Gender: F Cafeteria Aide: WG : 1950 Requested By: Carroll Vela Order Number: [id number] MD: Castro Garcia Measurements Intervals Bradford Rate: 66 P: 91 NV: 234 QRS: 60 QRSD: 112 T: 11 QT: 402 QTc: 422 Interpretive Statements Sinus rhythm Prolonged NV interval Borderline intraventricular conduction delay Compared to ECG 06/25/2017 09:25:08 First degree AV block now present Electronically Signed On 08-01-2019 16:50:35 CASTING WHEEL OPERATOR HELPER by Castro Garcia [email or web address] <ELECTRONICALLY SIGNED> By: Castro Garcia MD, [facility] 08/01/19 1650 46 Castro Garcia MD, FACC /EPI
[2019-08-01 16:52] LABS: BE(vivo) -5.4 mmol/L (-2 to +3); HCO3 19.9 mmol/L (22.0-26.0); PCO2 38.1 mmHg (35.0-45.0); PO2 80.4 mmHg (80.0-100.0); pH 7.336 (7.360-7.450); sO2 95.3 % (92.0-98.0)
[2019-08-01 17:47] VITALS: BP 126/44
[2019-08-01 19:01] VITALS: BP 126/64
[2019-08-01 19:15] VITALS: BP 127/51
[2019-08-01 23:35] VITALS: BP 122/54
--- NOTE | 2019-08-02 00:24 | NUR ---
ADMIT NOTE. PT ADMITTED FROM ED. MED HX-ASTHMA, DM, HTN, CHF. REASON FOR ADMIT LOW BS FOR LAST 3 DAYS AND INCREASED WEAKNESS SINCE LAST WEDNESDAY. AOX4. IN MID MAY PT WAS AT REHAB AND HAS HAD HH FROM [place] SINCE THAT TIME. TODAY HH PT VISITED TOOK VS AND AFTER TALKING WITH NURSE 911 WAS CALLED AND PT BROUGHT TO HOSPITAL. PT HAS A CHEMICAL STRESS TEST SCHEDULED AT THIS HOSPITAL AT 0830 FOR 08/02/19. IN ED FSBS 44, GIVEN AMP D50 IN ED, PRESENTED WITH SOFT TISSUE INFECTION. PT IS OBESE WITH LYMPHEDEMA. SOA WITH REPOSITIONING. PER PT HAD USED CPAP FOR 5 YEARS PRIOR TO REHAB ADMISSION BUT THAT IT WAS NOT RESUMED. AOX4. AT BEDSIDE. PT REQUESTING TO EAT UPON INTRODUCTION, FSBS OBTAINED AND FOOD PROVIDED. BARIATRIC BED ORDERED AND OBTAINED. IVF INFUSING. ANTIBIOTIC STARTED IN ED. TELE SR. RENAL DR CONSULTED. ELDRIDGE TO DD PLACED. PT INCONTINENT AT HOME NOT BEING ABLE TO AMBULATE TO RESTROOM. SKIN BREAKDOWN ON POSTERIOR R THIGH, L ANT GROIN, L KNEE FOLD, ALL SKIN FOLDS. PT RECEIVING RT TXS USES NEBULIZERS PRN AT HOME. PT STATES SHE RARELY TAKES PRN TYLENOL FOR PAIN, THAT SHE DOES GROAN BUT THAT SHE DOES NEED MEDICATION FOR RELIEF.
--- NOTE | 2019-08-02 02:32 | NUR ---
PTS LH IV INFILTRATED. AMBER IVF INFUSING. PT C/O R LEG DISCOMFORT AND PRN TYLENOL PROVIDED, PT RETURNED TO SLEEP.
[2019-08-02 04:08] VITALS: BP 112/53
--- NOTE | 2019-08-02 05:43 | NUR ---
pt repetitively groaning and saying ow. when asked re pain, she stated she needs to poop or her legs itch or she needs a leg massage. pt declined wanting prn for pain.
[2019-08-02 07:39] VITALS: BP 95/41
[2019-08-02 08:51] LABS: HEMATOCRIT 25.7 % (37.0-47.0); HEMOGLOBIN 8.4 gm/dL (12.0-15.0); MCH 32.3 pg (26.0-34.0); MCHC 32.7 g/dL (28.0-37.0); MCV 98.5 fL (80.0-100.0); RBC 2.61 mil/uL (4.20-5.00); RDW 18.4 % (10.5-14.5); WBC 5.6 thou/uL (4.0-11.0)
[2019-08-02 09:01] LABS: CALCIUM 8.6 mg/dL (8.5-10.1); CREATININE 2.5 mg/dL (0.6-1.0); POTASSIUM 5.2 mmol/L (3.5-5.1)
--- NOTE | 2019-08-02 11:44 | NUR ---
WOUND CARE CONSULT panus and groin, abd, knee folds all imani, scant drainage, recommend interdry drsg to all folds, change prn. open ulcer right posterior thigh, pink, blanchable, spouse at bs, states area just occurred this week, incont of stool, imani area sacral area, suggested zguard daily and prn, LAMBERTO GEIGER present w/ care, pt cooperative but c/o pain especially when cleansing rectal area, pain med given by staff midwife recommendations; interdry to all skin folds, change prn. zguard to posterior thigh wound daily and prn
[2019-08-02 15:54] VITALS: BP 113/41
[2019-08-02 19:28] VITALS: BP 99/45
[2019-08-02 20:44] VITALS: BP 118/48
[2019-08-02 23:43] VITALS: BP 126/45
[2019-08-03 03:39] VITALS: BP 122/40
--- NOTE | 2019-08-03 03:42 | NUR ---
PATIENT IS ALERT AND ORIENTED. PATIENT IS Q2TURN. PATIENT HAS ELDRIDGE. PATIENT HAS WOUNDS OPEN TO AIR. FRICTON SHEER, YEAST WOUNDS. PATIENT HAD PART BED BATH TODAY. PATIENTS PAIN IS CONTROLLED WITH PAIN MEDICATION. PATIENT IS RESTING COMFORTABLY IN BED. WCM.
[2019-08-03 06:27] LABS: ALBUMIN 2.1 g/dL (3.4-5.0); CALCIUM 7.7 mg/dL (8.5-10.1); CREATININE 2.2 mg/dL (0.6-1.0); PHOSPHORUS 4.2 mg/dL (2.5-4.9); POTASSIUM 5.3 mmol/L (3.5-5.1)
[2019-08-03 07:31] VITALS: BP 143/45
--- NOTE | 2019-08-03 10:40 | NUR ---
INITIAL ASSESSMENT: Received consult for discharge planning. ELENA reviewed chart and spoke with nursing and attending physician. Pt was admitted from home due to hypoglycemia. ELENA met with pt and spouse at bedside. introduced role of SW. Pt is alert/orientated x 4. Pt and spouse live at home. No steps to enter the home and no steps inside. Pt does have a cane and walker. Pt has been able to walk short distances in the home. Pt has been to [facility] in the past. Pt is currently on service with [place] . Pt's PCP is Dr. Cindy Ramos. SW discussed post-acute plans. Pt and spouse state that pt does better at home and are interested in a hospital bed. SW provided options for [employer] companies for the hospital bed. No preference voiced. ELENA faxed face sheet and H&P to [facility] for review to see if pt qualifies for a bariatric hospital bed. business continuity planner to fax referral to [facility] . Therapy to be ordered to evaluate pt. ELENA is following to assist as needed with discharge planning.
--- NOTE | 2019-08-03 12:51 | NUR ---
DISCHARGE PLANNING. ANTICIPATED DISCHARGE TO HOME WITH [facility]. PATIENT IS CURRENT WITH [facility]. CALL PLACED TO JONNATHAN [facility] INTAKE TO NOTIFY OF DC PLAN. PATIENT CLINICALS FAXED TO HER. JONNATHAN TO FACILITATE RESUMPTION OF HH ONCE HH ORDERS RECEIVED. NO DC DATE AT THIS TIME. FOLLOWING.
[2019-08-03 13:29] LABS: HEMATOCRIT 25.6 % (37.0-47.0); HEMOGLOBIN 8.2 gm/dL (12.0-15.0); MCH 32.2 pg (26.0-34.0); MCHC 31.8 g/dL (28.0-37.0); MCV 101.3 fL (80.0-100.0); RBC 2.53 mil/uL (4.20-5.00); RDW 18.5 % (10.5-14.5); WBC 5.2 thou/uL (4.0-11.0)
[2019-08-03 15:37] VITALS: BP 129/42
--- NOTE | 2019-08-03 19:33 | NUR ---
PATIENT REMAINS AFEBRILE. DR REGALADO CONSULTED, URINE FOR CULTURE TO LAB. PATIENT REMAINS ON BAIATRIC BED, COMMODE ON ORDER. OT AND PT HERE TODAY. TURNED SIDE TO SIDE. ELDRIDGE PATENT. PAIN CONTROLLED WITH PAIN REGIME. PATIENT AND UPDATED TO POC AND REASSURANCE GIVEN.
[2019-08-03 19:35] VITALS: BP 139/50
[2019-08-04 03:25] VITALS: BP 137/84
[2019-08-04 04:10] LABS: HEMATOCRIT 26.3 % (37.0-47.0); HEMOGLOBIN 8.6 gm/dL (12.0-15.0); MCH 32.9 pg (26.0-34.0); MCHC 32.6 g/dL (28.0-37.0); MCV 100.9 fL (80.0-100.0); RBC 2.61 mil/uL (4.20-5.00); RDW 18.8 % (10.5-14.5); WBC 5.8 thou/uL (4.0-11.0)
[2019-08-04 04:27] LABS: % SATURATION 27 % (20-39); IRON 51 ug/dL (50-170); TIBC 188 ug/dL (250-450)
[2019-08-04 04:54] LABS: TSH 53.92 uIU/mL (0.358-3.740)
[2019-08-04 05:09] LABS: CALCIUM 8.3 mg/dL (8.5-10.1); CREATININE 1.9 mg/dL (0.6-1.0); PHOSPHORUS 3.6 mg/dL (2.5-4.9); POTASSIUM 5.4 mmol/L (3.5-5.1)
--- NOTE | 2019-08-04 06:28 | NUR ---
PT IS A/OX4. BARIATRIC BED AND CHAIR WERE DELIVERED BY [facility]. FOLLOWING POC WITH IVF AND IVPB. PAIN MANAGEMENT AND Q2 TURNS. ELDRIDGE IN PLACE AND HAVING GOOD OUTPUT. PT LABS SHOW K+ STILL ELEVATED. CHECK PT HOME MEDICATIONS AND INSULIN HAS NOT BEEN RESTARTED YET, I WILL PASS THIS ON TO ONCOMING NURSE. HOURLY ROUNDING.
[2019-08-04 07:54] VITALS: BP 118/42
--- NOTE | 2019-08-04 14:21 | NUR ---
SW reviewed chart and spoke with nursing and attending physician. Pt is slowly progressing towards goals for discharge. 5N consulted and did evaluate pt. Recommendation made for pt to consider [facility] due to higher level of care needs and equipment. ELENA met with pt and spouse at bedside to discuss dishcarge plan. Pt requests referral to [facility]. ELENA received call back from Jennifer at [facility], who states that pt does qualify for a hospital bed, but they would need documentation and script. ELENA explained this to pt and states that the hospital bed can be ordered from facility where she discharge home from. Pt verbalized understanding and is agreeable with discharge plan to [facility] if accepted. land planner to fax referral to [facility]. SW notified [facility] liaison of new referral. ELENA updated attending physician. Unsure of discharge timeframe. ELENA is following to assist as needed with discharge planning.
--- NOTE | 2019-08-04 14:38 | NUR ---
DISCHARGE PLANNING. POST ACUTE RECOMMENDED AT DISCHARGE. ATIENT REFERRAL FAXED TO [facility] FOR POST ACUTE NEEDS PER PATIENT REQUEST. CALL PLACED TO ROGER SARGENT LIAISON TO NOTIFY. [facility] TO REVIEW AND NOTIFY ANURAG.
--- NOTE | 2019-08-04 15:37 | NUR ---
WOUND CARE FOLLOW UP; THE PATIENTS SKIN FOLDS SEEM TO BE BETTER AND THE ODOR IS LESS TODAY. THE RIGHT POSTERIOR THIGH LOOKS BETTER WELL. CONTINUE TO USE ZGUARD EVERY OPPORTUNITY. CONTINUE CURRENT TX. RN PRESENT
--- NOTE | 2019-08-04 16:32 | NUR ---
ASSUMED CARE OF PATIENT AT 0700. VSS. ROOM AIR. NORMAL SINUS RHYTHM. PATIENT RIGHT POSTERIOR LEG WOUND CLEANED AND ZGUARD APPLIED BY NURSE AND WOUND CARE NURSE. PATIENT INCONTINENT - PATIENT CLEANED DURING WOUND TREATMENT. HEAVY ASSISTANCE NEEDED DUE TO PAITENT MORBID OBESITY. PATIENT BLOOD SUGAR HAS BEEN RISING TODAY, DINNER ACCUCHECK SHOWED BLOOD SUGAR OF 213 - PHYSICAN CONTANCTED AND INSULIN ORDERED. CONTINUING TO MONITOR.
[2019-08-04 19:49] VITALS: BP 121/40
[2019-08-05 04:17] VITALS: BP 122/31
--- NOTE | 2019-08-05 06:25 | NUR ---
PT HAS COMPLAINTS OF PAIN IN BLLE. PAIN CONTROL MANAGED OVERNIGHT WITH IV AND ORAL MEDICATION. REPOSITIONED LEGS WITH PILLOWS. LOTIONED PT LEGS PER HER REQUEST. HOURLY ROUNDING.
[2019-08-05 07:35] VITALS: BP 125/37
[2019-08-05 07:45] VITALS: BP 127/57
[2019-08-05 07:46] LABS: CALCIUM 8.9 mg/dL (8.5-10.1); CREATININE 1.5 mg/dL (0.6-1.0); PHOSPHORUS 2.6 mg/dL (2.5-4.9); POTASSIUM 5.4 mmol/L (3.5-5.1)
[2019-08-05 09:10] VITALS: BP 140/53
[2019-08-05 15:20] VITALS: BP 130/50
--- NOTE | 2019-08-05 17:04 | NUR ---
pt is A&OX3, PT is continuing IV abx and wound care , pt's vs are stable , pt needs help ADL and change position , pt denies pain and sob at this time.
[2019-08-05 19:41] VITALS: BP 125/47
[2019-08-06 04:07] VITALS: BP 106/43
[2019-08-06 06:02] LABS: HEMATOCRIT 26.4 % (37.0-47.0); HEMOGLOBIN 8.2 gm/dL (12.0-15.0); MCH 31.8 pg (26.0-34.0); MCHC 31.1 g/dL (28.0-37.0); MCV 102.3 fL (80.0-100.0); RBC 2.58 mil/uL (4.20-5.00); RDW 18.8 % (10.5-14.5); WBC 6.1 thou/uL (4.0-11.0)
--- NOTE | 2019-08-06 06:20 | NUR ---
PT NEW PLAN IS TO DC TO A REHAB FACILITY IN [place]. PAIN MANAGED WITH TYLENOL OVERNIGHT. PT REQUEST LEGS TO HAVE SOME LOTION PUT ON THEM. AND BACK SCRATCHED. PT HAS ABILITY TO USE GRAB BAR AND MOVE HERSELF. [facility] BED WITH LOW LOSS MATTERESS IN PLACE. VSS, TELE MONITOR SHOWS SR W/1 AVB.
[2019-08-06 06:26] LABS: CALCIUM 8.5 mg/dL (8.5-10.1); CREATININE 1.5 mg/dL (0.6-1.0); PHOSPHORUS 2.6 mg/dL (2.5-4.9); POTASSIUM 5.9 mmol/L (3.5-5.1)
[2019-08-06 07:16] VITALS: BP 117/43
[2019-08-06 15:26] VITALS: BP 126/52
[2019-08-06 19:57] VITALS: BP 145/55
--- NOTE | 2019-08-06 20:06 | NUR ---
pt is A&O X3, PT is continuing iv abx and wound care, pt's vs are stable, pt stay in [facility] big bed, pt needs some help for ADL,
--- NOTE | 2019-08-07 01:46 | NUR ---
PATIENT IS ADVANCING SLOWLY IN HER CARE PLAN. VITAL SIGNS STABLE WITH PATIENT HAVING NO COMPLAINTS OF NAUSEA. PATIENT DID COMPLAIN OF PAIN IN LOWER EXTREMITIES WHICH WAS TREATED EFFECTIVELY THROUGH MEDICATION AND REPOSITIONING. MOSTLY ORIENTED BUT ANXIOUS, PATIENT IS ABLE TO CALL FOR NEEDS AND PARTICIPATE IN CARE. WOUND/SKIN CARE PER DOCTOR ORDER. PATIENTS STATUS WAS DOWNGRADED TO MED SURG THIS SHIFT WITH THE POSSIBILITY OF TRANSFER TO MORE APPROPRIATE UNIT. CONTINUE PLAN OF CARE.
[2019-08-07 05:41] LABS: HEMATOCRIT 25.8 % (37.0-47.0); HEMOGLOBIN 8.3 gm/dL (12.0-15.0); MCH 32.7 pg (26.0-34.0); MCHC 32.3 g/dL (28.0-37.0); MCV 101.2 fL (80.0-100.0); RBC 2.55 mil/uL (4.20-5.00); RDW 18.3 % (10.5-14.5); WBC 5.4 thou/uL (4.0-11.0)
[2019-08-07 05:44] LABS: CALCIUM 8.7 mg/dL (8.5-10.1); CREATININE 1.5 mg/dL (0.6-1.0); POTASSIUM 5.7 mmol/L (3.5-5.1)
[2019-08-07 06:11] VITALS: BP 142/40
[2019-08-07 07:20] VITALS: BP 151/58
--- NOTE | 2019-08-07 14:35 | NUR ---
DISCHARGE NOTE: ELENA reviewed chart and spoke with nursing and attending physician. Pt is medically stable for discharge to [facility] today. SW confirmed that [facility] has a bed and able to accept pt today. Awaiting final discharge orders/summary. SW met with pt and spouse at bedside to discuss discharge plan. Both are aware and in agreement with discharge plan to [facility] and spouse at bedside on Wednesday evening. Chart copy requested. Pt will need stretcher/ambulance transportation. associate merchandise planner to coordinate and fax final discharge orders/summary when available. ELENA is following to assist should further needs arise.
[2019-08-07] MEDS ORDERED: KEFLEX500 M1 PO ×2 (14:56→14:58)
[2019-08-07] MEDS ORDERED: VELTASSA8.4 GM PO (14:57)
[2019-08-07 15:15] VITALS: BP 142/68
--- NOTE | 2019-08-07 17:31 | NUR ---
REPORT CALLED TO HEATHER AT [facility]. PIV WAS DISCONTINUED PRIOR TO DISCHARGE. ELDRIDGE IN PLACE. WOUND PHOTOS DONE PTD. PT TOOK ALL BELONGINGS. PT TRANSFERRED VIA EMS.
--- NOTE | 2019-08-08 09:44 | HC ---
[facility] [place] [address] CONSULTATION Name: NELDA PERKINS Room #: 360-P [facility] IN M.R.#: [id number] Admission: 08/01/19 Attend Phys: Jay Santana MD Discharge: 08/07/19 Date of : 50 Report #: [id number] THIS REPORT FOR: //name// CC: Jay Ramos DATE OF SERVICE: 08/02/2019 REASON FOR CONSULTATION: Elevated creatinine. REASON FOR PRESENTATION: Lower extremity weakness. HISTORY OF PRESENT ILLNESS: This is a 68-year-old with extensive past medical history including diabetes mellitus, hypertension, chronic kidney disease. She is followed by [facility]. She does not recall her exact kidney numbers. She presented with bilateral lower extremity weakness and was found to have hypoglycemia. She was admitted to further evaluate. Creatinine on presentation was found to be 2.8. I am being consulted to manage the patient's chronic kidney disease issues. The patient had been evaluated in our facility by Dr. Quintero in 04/2019 and in 06/2017. She has longstanding diabetes mellitus and morbid obesity. She was at one point told by the [facility] that she will need to be initiated on dialysis; however, she tells me that there was some improvement on her kidney function, but she is not able to give me the exact details. PAST MEDICAL HISTORY: 1. Diabetes mellitus. 2. Chronic kidney disease. 3. Hypertension. 4. Morbid obesity. 5. Obstructive sleep apnea. 6. Coronary artery disease. 7. Glaucoma. 8. Hyperlipidemia. 9. Lymphedema. 10. Post-cardiac catheterization with stent. 11. Carpal tunnel surgery. 12. Cervical spine surgery. 13. Tonsillectomy. ALLERGIES: ADVAIR. FAMILY HISTORY: Extensive diabetes mellitus and hypertension in multiple family members. MEDICATIONS: [facility] [address] [place] [address] CONSULTATION Name: NELDA PERKINS Room #: 360-P [facility] IN [facility].#: [id number] Admission: 08/01/19 Attend Phys: Jay Santana MD Discharge: 08/07/19 Date of : 50 Report #: [id number] 1. Albuterol. 2. Atorvastatin. 3. Carvedilol. 4. Irbesartan. 5. Aspirin. 6. Torsemide. 7. Insulin. 8. Glimepiride. 9. Levothyroxine. 10. Trulicity. REVIEW OF SYSTEMS: GENERAL: Significant for weakness. CARDIOVASCULAR: Occasional dyspnea on exertion. Significant lower extremity edema. PULMONARY: Dyspnea on exertion, obstructive sleep apnea. She wears CPAP at night. GASTROINTESTINAL: No nausea or vomiting. GENITOURINARY: No frequency, no urgency. MUSCULOSKELETAL: Bilateral lower extremity weakness and cellulitic changes. NEUROLOGICAL: No headache, but significant for fatigue. PHYSICAL EXAMINATION: VITAL SIGNS: Blood pressure is marginal at 95/41, temperature is 37.2, and pulse rate is 68. HEAD AND NECK: No jugular venous distention. CHEST: No crackles. CARDIOVASCULAR: No rub. ABDOMEN: Massive obesity with cellulitis of the distal pannus. Abdominal wall edema is present. EXTREMITIES: Lower extremities massive lymphedema. LABORATORY DATA: Reviewed. Hemoglobin is 8.6. UA with no protein, but significant red blood cells and white blood cells. Chemistry from yesterday revealed a sodium of 130, BUN of 137, creatinine of 2.8. Chemistry from today is pending. ASSESSMENT, IMPRESSION AND PLAN: 1. Acute kidney injury. 2. Chronic kidney disease with unknown baseline. 3. Anemia. 4. Morbid obesity. 5. Cellulitis of the abdominal wall. 6. Hypertension. 7. I will initiate the appropriate acute kidney injury workup. 8. We will reach out to the patient's primary jewelry mechanic to obtain her [address] [address] CONSULTATION Name: NELDA PERKINS Room #: 360-P [facility] IN M.R.#: [id number] Admission: 08/01/19 Attend Phys: Jay Santana MD Discharge: 08/07/19 Date of : 50 Report #: [id number] baseline kidney function. 9. Continue with IV fluid. 10. Continue to address her cellulitis. 11. Avoid nephrotoxins. 12. Hold on any diuretics for now. 13. We will continue to follow during her hospital stay and monitor her renal function. <ELECTRONICALLY SIGNED> By: Darlyn Young MD 08/08/19 0944 0756 0828 Darlyn Young MD /nt
== END 2019-08-07 17:17 | DRG 606 ==
LOC: ER 14:14 → EROBS 17:06 → 3W 17:06 → EROBS 19:01 → 3W 19:22
PROVIDERS: Emergency Medicine; Hospitalist; Internal Medicine; ADMIT Internal Medicine
DX: M79.3 Panniculitis, unspecified (principal); G92 Toxic encephalopathy; R65.10 Systemic inflammatory response syndrome (SIRS) of non-infectious origin without acute organ dysfunction; E87.1 Hypo-osmolality and hyponatremia; N17.9 Acute kidney failure, unspecified; L03.311 Cellulitis of abdominal wall; E66.2 Morbid (severe) obesity with alveolar hypoventilation; L03.116 Cellulitis of left lower limb; L03.115 Cellulitis of right lower limb; N39.0 Urinary tract infection, site not specified; I13.0 Hypertensive heart and chronic kidney disease with heart failure and stage 1 through stage 4 chronic kidney disease, or unspecified chronic kidney disease; Z68.45 Body mass index [BMI] 70 or greater, adult; E11.649 Type 2 diabetes mellitus with hypoglycemia without coma; J45.909 Unspecified asthma, uncomplicated; K21.9 Gastro-esophageal reflux disease without esophagitis; I50.9 Heart failure, unspecified; J44.9 Chronic obstructive pulmonary disease, unspecified; E11.22 Type 2 diabetes mellitus with diabetic chronic kidney disease; R79.89 Other specified abnormal findings of blood chemistry; I25.10 Atherosclerotic heart disease of native coronary artery without angina pectoris; E78.5 Hyperlipidemia, unspecified; E03.9 Hypothyroidism, unspecified; I87.8 Other specified disorders of veins; D53.9 Nutritional anemia, unspecified; E87.5 Hyperkalemia; E53.8 Deficiency of other specified B group vitamins; Z83.3 Family history of diabetes mellitus; Z82.49 Family history of ischemic heart disease and other diseases of the circulatory system; Z88.8 Allergy status to other drugs, medicaments and biological substances; Z79.82 Long term (current) use of aspirin; Z79.899 Other long term (current) drug therapy; Z23 Encounter for immunization
CPT/HCPCS: 10080; 10879

== ENCOUNTER → 2019-10-12 | Outpatient (CLI) | payer OTHER ==
[~2019-10-12] MED LIST changes: +IRBESARTAN150 MG PO; +PIOGLITAZONE15 MG; +VELTASSA8.4 GM PO
== END ==
LOC: SJCVC 10:47
DX: I44.0 Atrioventricular block, first degree (principal); I25.10 Atherosclerotic heart disease of native coronary artery without angina pectoris; I13.0 Hypertensive heart and chronic kidney disease with heart failure and stage 1 through stage 4 chronic kidney disease, or unspecified chronic kidney disease; E11.22 Type 2 diabetes mellitus with diabetic chronic kidney disease; N18.9 Chronic kidney disease, unspecified; I50.32 Chronic diastolic (congestive) heart failure; E78.5 Hyperlipidemia, unspecified; J45.909 Unspecified asthma, uncomplicated; E78.00 Pure hypercholesterolemia, unspecified; M17.11 Unilateral primary osteoarthritis, right knee; Z79.82 Long term (current) use of aspirin; Z79.4 Long term (current) use of insulin; Z79.899 Other long term (current) drug therapy

== ENCOUNTER 2019-11-27 05:19 | Inpatient (IN) | payer OTHER ==
[~2019-11-27] VITALS: Ht 152.4 cm; Wt 180.6 kg
--- NOTE | ~2019-11-27 | HC ---
[facility] [place] [address] CONSULTATION Name: NELDA PERKINS Room #: 364-P ADM IN M.R.#: [id number] Admission: 11/27/19 Attend Phys: Isaac Campos MD Discharge: Date of : 50 Report #: [id number] THIS REPORT FOR: cc: DEREK - Family physician unknown DEREK - Family physician unknown Darlyn Young MD ~ CC: DEREK unknown Isaac Campos DATE OF SERVICE: 11/28/2019 REASON FOR CONSULTATION: Acute kidney injury. REASON FOR PRESENTATION: Brought by her family members, informed about her overall health condition. HISTORY OF PRESENT ILLNESS: This is obtained from the medical chart. The patient is lethargic and not able to provide me with the details of her history. She is well known to me from previous hospital. She is chronic kidney disease, who is followed by [facility]. She has many other comorbid conditions including chronic lymphedema, COPD, hypertension, diabetes mellitus, obstructive sleep apnea. The patient was in an unkempt situation when she came yesterday, she was covered with bed bugs. She was brought by her because of inability to ambulate. Family or spouse realized that the patient has been lethargic lately. She has decreased oral intake. The patient reported to her before her presentation that she is concerned that she might have been exposed COVID-19 virus by one of the home health nurses. She also came back from a trip to [place]. The patient was found to have a significantly elevated creatinine on her presentation yesterday. Creatinine was found to be 3.2. Prior to this and during the previous hospitalization, the patient had a creatinine value of 3.5 back in 04/2019. She had repeated episodes of acute kidney injury back in July and her creatinine had improved with a discharge value of 1.5. She is currently growing Gram-positive cocci in her blood. PAST MEDICAL HISTORY: 1. Diabetes mellitus. 2. Hypertension. 3. Hyperlipidemia. 4. Chronic kidney disease. 5. Coronary artery disease. 6. Chronic lymphedema. 7. Chronic kidney disease for which she is followed up by [facility]. 8. Obstructive sleep apnea. 9. Morbid obesity. 10. Chronic lymphedema. 11. Carpal tunnel surgery. [address] [address] CONSULTATION Name: NELDA PERKINS Room #: 364-P [facility] IN .R.#: [id number] Admission: 11/27/19 Attend Phys: Isaac Campos MD Discharge: Date of : 50 Report #: [id number] 12. Tonsillectomy. 13. Cervical spine surgery. ALLERGIES: ADVAIR. FAMILY HISTORY: Extensive diabetes mellitus and hypertension. MEDICATIONS: 1. Atorvastatin. 2. Irbesartan. 3. Carvedilol. 4. Torsemide. 5. Glimepiride. 6. Levothyroxine. 7. Trulicity. REVIEW OF SYSTEMS: Currently, the patient is unable to provide me with review of system. She is extremely lethargic and every time I ask her questions, she answers by "I do not know." SOCIAL HISTORY: Currently, unobtainable given the patient's current mental status, but apparently she lives with her . PHYSICAL EXAMINATION: Obese, disoriented. Pulse rate is 64, respiratory rate is 20, blood pressure is 101/38. HEAD AND NECK: No jugular venous distention. CHEST: Decreased air entry bilaterally. CARDIOVASCULAR: No rubs detected. ABDOMEN: Soft. LOWER EXTREMITIES: Extensive bilateral cellulitic and lower extremity edema. LABORATORY DATA: Reviewed. White blood cell count was 15.3 and is down to 10. Sodium is 130, BUN is 87, creatinine is 3.3. Blood cultures are positive for Gram-positive cocci. Troponin was elevated at 9.7, is down to 5.8. IMPRESSION AND PLAN: 1. Acute kidney injury. 2. Chronic kidney disease. 3. Gram-positive cocci bacteremia. 4. Cellulitic bilateral lower extremities. 5. Elevated troponin. 6. Noncompliance. 7. [place] [address] CONSULTATION Name: NELDA PERKINS Room #: 364-[facility] IN M.R.#: [id number] Admission: 11/27/19 Attend Phys: Isaac Campos MD Discharge: Date of : 50 Report #: [id number] 8. Hypotension with history of hypertension. 9. Her acute kidney injury is well explained by her current septic event. 10. Appropriate antibiotic had been initiated. 11. Follow sensitivities. 12. Continue IV fluid. 13. Discontinue all blood pressure medications. 14. Strict input and output. 15. Follow electrolytes and renal panel on daily basis. 16. Very guarded prognosis. By: 0838 09 Darlyn Young MD /nt
[2019-11-27 05:21] VITALS: BP 155/120
[2019-11-27 09:37] LABS: ABSOLUTE NEUTROPHILS 12.8 thou/uL (1.4-8.2); HEMATOCRIT 35.3 % (37.0-47.0); HEMOGLOBIN 11.5 gm/dL (12.0-15.0); LYMPHOCYTES 2.2 % (24.0-44.0); MCH 35.8 pg (26.0-34.0); MCHC 32.5 g/dL (28.0-37.0); MCV 110.2 fL (80.0-100.0); MONOCYTES 1.7 % (1.0-8.0); PLATELET COUNT 293 thou/uL (150-400); POLYS 96.1 % (36.0-66.0); RBC 3.21 mil/uL (4.20-5.00); RDW 15.1 % (10.5-14.5); WBC 13.3 thou/uL (4.0-11.0)
[2019-11-27 09:51] LABS: BE(vivo) -4.5 mmol/L (-2 to +3); HCO3 21.6 mmol/L (22.0-26.0); PCO2 VENOUS 43.8 mmHg (41.0-51.0); PO2 VENOUS 17.1 mmHg (35.0-45.0)
[2019-11-27 09:51] LABS: PROTIME 10.7 Seconds (9.3-11.4)
[2019-11-27 09:53] LABS: CALCIUM 9.9 mg/dL (8.5-10.1); CREATININE 3.2 mg/dL (0.6-1.0)
[2019-11-27 09:55] LABS: POTASSIUM 5.9 mmol/L (3.5-5.1)
[2019-11-27 09:57] LABS: ANISOCYTOSIS 1+; PLATELET ESTIMATE NORMAL
[2019-11-27 09:58] LABS: ALBUMIN 3.2 g/dL (3.4-5.0); DIRECT BILIRUBIN 0.3 mg/dL (<0.1-0.2); TOTAL BILIRUBIN 0.8 mg/dL (<0.1-1.0); TOTAL PROTEIN 11.9 g/dL (6.4-8.2)
[2019-11-27] MEDS ORDERED: LIPITOR 40 MG T40 M1 PO (09:59)
[2019-11-27] MEDS ORDERED: IRBESARTAN150 MG PO (09:59)
[2019-11-27] MEDS ORDERED: GLIMEPIRIDE4 MG PO (09:59)
[2019-11-27] MEDS ORDERED: CARVEDILOL25 MG PO (10:00)
[2019-11-27] MEDS ORDERED: BUPROPION HCL100 MG PO (10:01)
[2019-11-27 10:02] LABS: MAGNESIUM 2.2 mg/dL (1.8-2.4)
[2019-11-27 10:05] LABS: TROPONIN-I 8.84 ng/mL (<0.06)
[2019-11-27 10:58] VITALS: BP 143/58
[2019-11-27 11:44] LABS: URINE BILIRUBIN NEGATIVE (Negative); URINE BLOOD TRACE (Negative); URINE CLARITY CLEAR; URINE COLOR YELLOW; URINE GLUCOSE-RANDOM* NEGATIVE (Negative); URINE KETONES NEGATIVE (Negative); URINE LEUKOCYTES-REFLEX 2+ (Negative); URINE NITRITE-REFLEX NEGATIVE (Negative); URINE PROTEIN (DIPSTICK) NEGATIVE (Negative); URINE SPECIFIC GRAVITY 1.015 (1.005-1.035); URINE UROBILINOGEN 0.2 E.U./dl (0.2-1.0)
[2019-11-27 12:57] VITALS: BP 103/55
[2019-11-27 13:09] LABS: BACTERIA-REFLEX >30 Many /HPF (None Seen); CASTS None Seen /LPF (None Seen); CRYSTALS None Seen /LPF (None Seen); SQUAMOUS 0-3 Few /LPF (0-3); URINE RBC 0-2 Rare /HPF (0-2); URINE WBC-REFLEX 6-15 Few /HPF (0-5)
[2019-11-27 14:29] VITALS: BP 127/47
[2019-11-27 14:46] LABS: CALCIUM 8.6 mg/dL (8.5-10.1); CREATININE 3.1 mg/dL (0.6-1.0)
--- NOTE | 2019-11-27 15:28 | 2DMMODE ---
[address] [address] 2 D/M-MODE ECHOCARDIOGRAM Name: NELDA PERKINS Room #: 364-P ADM IN M.R.#: [id number] Admission: 11/27/19 Attend Phys: Isaac Campos MD Discharge: Date of : 50 Report #: [id number] THIS REPORT FOR: cc: FAM - Family physician unknown FAM - Family physician unknown Vazquez Spencer MD ~ APPROVED REPORT Study performed: 11/27/2019 14:26:41 EXAM: Comprehensive 2D, Doppler, and color-flow Echocardiogram Patient Location: ER Room #: 6 Status: routine BSA: 2.48 HR: 75 bpm BP: 103/55 mmHg Rhythm: NSR Other Information Study Quality: Technically DifficultExtremely Technically Limited Technically limited study due to body habitus, inability to position patient. Indications COPD Diabetes Dyspnea Hypertension/HDD Echo Enhancing Agent Indication: Endocardial border delineation Agent(s) / Amount(s) Used: Optison 4 cc Aortic Valve AoV Peak Tyrese.: 1.61 m/s AO Peak Gr.: 16.02 mmHg LVOT Max P.57 mmHg LVOT Max V: 0.94 m/s Pulmonary Valve PV Peak Tyrese.: 1.17 m/s PV Peak Gr.: 5.49 mmHg Left Ventricle [address] [address] 2 D/M-MODE ECHOCARDIOGRAM Name: NELDA PERKINS Room #: 364-P ADM IN M.R.#: [id number] Admission: 11/27/19 Attend Phys: Isaac Capmos MD Discharge: Date of : 50 Report #: [id number] The left ventricle is normal size. There is normal left ventricular wall thickness. The left ventricular systolic function is normal. The left ventricular ejection fraction is within the normal range. LVEF is 55-60%. This study is not technically sufficient to allow evaluation of the LV diastolic function. Right Ventricle The right ventricle is normal size. The right ventricular systolic function is normal. Atria The left atrium size is normal. The right atrium size is normal. Aortic Valve Aortic valve is not well visualized. No aortic regurgitation is present. There is no aortic valvular stenosis. Mitral Valve Mitral valve is not well visualized. There is no mitral valve regurgitation noted. No evidence of mitral valve stenosis. Tricuspid Valve Tricuspid valve is not well visualized. There is no tricuspid valve regurgitation noted. Pulmonic Valve Pulmonic valve is not well visualized. There is no pulmonic valvular regurgitation. Great Vessels The aortic root is normal in size. IVC is not well visualized. Pericardium There is no pericardial effusion. <Conclusion> The left ventricle is normal size. LVEF is 55-60%. Aortic valve is not well visualized. Mitral valve is not well visualized. Tricuspid valve is not well visualized. [facility] [address] [place] [address] 2 D/M-MODE ECHOCARDIOGRAM Name: NELDA PERKINS Room #: 364-P ADM IN M.R.#: [id number] Admission: 11/27/19 Attend Phys: Isaac Campos MD Discharge: Date of : 50 Report #: [id number] Pulmonic valve is not well visualized. There is no pericardial effusion. <ELECTRONICALLY SIGNED> By: Vazquez Spencer MD 11/27/19 1527 1527 1527 Vazquez Spencer MD /INF
--- NOTE | 2019-11-27 15:46 | EKG ---
[facility] [place] [address] ELECTROCARDIOGRAM REPORT Name: NELDA PERKINS Room #: 364-P ADM IN M.R.#: [id number] Admission: 11/27/19 Attend Phys: Isaac Campos MD Discharge: Date of : 50 Report #: [id number] THIS REPORT FOR: cc: FAM - Family physician unknown FAM - Family physician unknown Castro Garcia MD [facility] ~ THIS REPORT FOR: //name// [facility] ED Test Date: 2019-11-27 Test Time: 06:29:54 Pat Name: NELDA PERKINS Department: Room: [facility] Gender: F Promotions Associate: celena : 1950 Requested By: Bella Lovelace Order Number: [id number] MD: Castro Garcia Measurements Intervals [place] Rate: 89 P: 61 NE: 217 QRS: 76 QRSD: 105 T: 31 QT: 349 QTc: 425 Interpretive Statements Sinus rhythm Borderline prolonged NE interval Low voltage, precordial leads Compared to ECG 08/01/2019 16:47:04 No significant change was found Electronically Signed On 11-27-2019 15:45:19 CDT by Castro Garcia [email or web address] <ELECTRONICALLY SIGNED> By: Castro Garcia MD, [facility] 11/27/19 1545 0629 0629 Castro Garcia MD, [facility] /EPI
[2019-11-27 16:54] VITALS: BP 135/59
[2019-11-27 19:40] VITALS: BP 104/35
[2019-11-28] VITALS (7 sets, daily range): BP systolic 0–111; BP diastolic 36–49
[2019-11-28 06:16] LABS: HEMATOCRIT 25.9 % (37.0-47.0); MCH 36.5 pg (26.0-34.0); MCHC 32.6 g/dL (28.0-37.0); MCV 111.8 fL (80.0-100.0); PLATELET COUNT 228 thou/uL (150-400); RBC 2.31 mil/uL (4.20-5.00); RDW 14.9 % (10.5-14.5)
[2019-11-28 06:23] LABS: HEMOGLOBIN 8.4 gm/dL (12.0-15.0)
[2019-11-28 06:25] LABS: CALCIUM 7.6 mg/dL (8.5-10.1); CREATININE 3.3 mg/dL (0.6-1.0)
[2019-11-28 07:52] LABS: ABSOLUTE NEUTROPHILS 9.1 thou/uL (1.4-8.2); METAMYELOCYTES 1 %
[2019-11-28 07:54] LABS: ANISOCYTOSIS 1+
[2019-11-28 09:33] LABS: URINE BILIRUBIN NEGATIVE (Negative); URINE BLOOD 3+ (Negative); URINE CLARITY CLOUDY; URINE COLOR YELLOW; URINE GLUCOSE-RANDOM* NEGATIVE (Negative); URINE KETONES TRACE (Negative); URINE LEUKOCYTES 2+ (Negative); URINE NITRITE NEGATIVE (Negative); URINE PROTEIN (DIPSTICK) 3+ (Negative); URINE SPECIFIC GRAVITY >= 1.030 (1.005-1.035)
[2019-11-28 09:42] LABS: AMORPHOUS URATES Many /LPF (None Seen); BACTERIA >30 Many /HPF (None Seen); CASTS None Seen /LPF (None Seen); SQUAMOUS 0-3 Few /LPF (0-3); URINE WBC >25 Many /HPF (0-5)
[2019-11-28 09:43] LABS: URINE RBC 3-10 Few /HPF (0-2)
[2019-11-29 04:15] VITALS: BP 138/51
[2019-11-29 06:25] LABS: CALCIUM 7.6 mg/dL (8.5-10.1); CREATININE 3.3 mg/dL (0.6-1.0); PHOSPHORUS 4.6 mg/dL (2.5-4.9); POTASSIUM 4.6 mmol/L (3.5-5.1)
[2019-11-29 06:26] LABS: HEMATOCRIT 24.8 % (37.0-47.0); MCHC 32.3 g/dL (28.0-37.0); MCV 111.5 fL (80.0-100.0); RBC 2.23 mil/uL (4.20-5.00); WBC 7.7 thou/uL (4.0-11.0)
[2019-11-29 07:59] VITALS: BP 109/46
[2019-11-29 12:24] VITALS: BP 123/58
[2019-11-29 16:16] VITALS: BP 154/54
[2019-11-29 19:23] VITALS: BP 132/52
--- NOTE | 2019-11-29 20:54 | HC ---
[facility] [place] [address] CONSULTATION Name: NELDA PERKINS Room #: 364-P ADM IN M.R.#: [id number] Admission: 11/27/19 Attend Phys: Isaac Campos MD Discharge: Date of : 50 Report #: [id number] THIS REPORT FOR: cc: FAM - Family physician unknown FAM - Family physician unknown Carroll Zuleta MD ~ CC: DEREK unknown Isaac Campos DATE OF SERVICE: 11/28/2019 INFECTIOUS DISEASE CONSULTATION REASON FOR CONSULTATION: I was asked to evaluate concerning bacteremia and sepsis. HISTORY OF PRESENT ILLNESS: A 69-year-old morbidly obese woman with a history of COPD, hypertension, obstructive sleep apnea and chronic kidney disease. She has underlying diabetes. She was admitted with change in mental status. She has had generalized pain and weakness as well. She was noted to be unable to ambulate for some time. She has been lethargic. There was evidence of bed bugs on her. She has had travel to [place] in the recent past. She was unable to give me much further history. Denies any chest pain, palpitations, shortness of breath, cough or sputum production. No nausea, vomiting or diarrhea. Has an indwelling Clifford catheter now in place. Does complain of left hip pain. PAST MEDICAL HISTORY: Diabetes, hypertension, hyperlipidemia, chronic kidney disease, coronary artery disease, chronic lymphedema, obstructive sleep apnea, morbid obesity, carpal tunnel surgery, tonsillectomy, cervical spine surgery, previous cellulitis and lymphangitis. ALLERGIES: ADVAIR. MEDICATIONS: Atorvastatin, irbesartan, carvedilol, torsemide, glimepiride, levothyroxine, Trulicity. Now on vancomycin and Zosyn. FAMILY HISTORY: Diabetes and hypertension. SOCIAL HISTORY: Lives with her , nonsmoker, no significant alcohol intake. REVIEW OF SYSTEMS: A 14-point review of systems was negative other than what has been described above. PHYSICAL EXAMINATION: GENERAL: She was afebrile and hemodynamically stable. She was alert and [facility] [address] [place] [address] CONSULTATION Name: NELDA PERKINS Room #: 364-P ADM IN M.R.#: [id number] Admission: 11/27/19 Attend Phys: Isaac Campos MD Discharge: Date of : 50 Report #: [id number] somewhat cooperative, although would not move in bed. She had cellulitis involving both lower extremities. 2+ edema. Morbidly obese with large abdominal pannus and folds in her thighs. No palpable adenopathy. EYES: Without scleral icterus. MOUTH: Without mucositis. NECK: Supple. LUNGS: Decreased breath sounds bilaterally with no consolidation. HEART: Regular without appreciable murmur, gallop or rub. ABDOMEN: Obese, moderately distended, diffusely tender, no mass or hepatosplenomegaly identified. EXTREMITIES: With no clubbing or cyanosis. Does have venous stasis disease. NEUROLOGIC: Cranial nerves intact. Strength in the upper extremities was symmetric. Hard to determine the lower extremities because of pain. She would yell out with movement of any of her lower extremities. She did complain of her left hip as part of the issue. PSYCHIATRIC: Mood was normal with no anxiety or depression. BACK: Unable to assess her back. LABORATORY STUDIES: Reviewed. Microbiology reviewed. Renal ultrasound reviewed. Chest x-ray reviewed. IMPRESSION: A 69-year-old presents with sepsis, acute on chronic kidney disease, Gram-positive bacteremia, Enterobacter urinary tract infection, lower extremity cellulitis, perineal intertrigo, morbid obesity, obstructive sleep apnea. RECOMMENDATIONS: We will continue broad antibiotic coverage with vancomycin and Zosyn, pending culture results and identification of the bacteremia as well as the sensitivities of the Enterobacter. Continue local wound care. May need further evaluation of her left hip. We will see how she responds to further activity. <ELECTRONICALLY SIGNED> By: Carroll Zuleta MD 11/29/19 2054 2319 0019 Carroll Zuleta MD /nt
[2019-11-30 03:40] VITALS: BP 132/61
[2019-11-30 06:43] LABS: HEMOGLOBIN 8.2 gm/dL (12.0-15.0); MCH 36.4 pg (26.0-34.0); MCV 110.4 fL (80.0-100.0); RBC 2.26 mil/uL (4.20-5.00); WBC 7.1 thou/uL (4.0-11.0)
[2019-11-30 06:46] LABS: ABSOLUTE RETIC COUNT 0.0393 10^6/uL; OBSERVED RETIC COUNT 1.77 % (0.6-2.6)
[2019-11-30 06:52] LABS: % SATURATION 18 % (20-39); IRON 33 ug/dL (50-170); TIBC 183 ug/dL (250-450)
[2019-11-30 06:59] LABS: ALBUMIN 1.9 g/dL (3.4-5.0); CALCIUM 8.1 mg/dL (8.5-10.1); CREATININE 2.8 mg/dL (0.6-1.0); PHOSPHORUS 3.9 mg/dL (2.5-4.9)
[2019-11-30 07:53] VITALS: BP 127/59
[2019-11-30 11:38] VITALS: BP 148/62
--- NOTE | 2019-11-30 15:34 | HC ---
[facility] [place] [address] CONSULTATION Name: NELDA PERKINS Room #: 364-P ADM IN M.R.#: [id number] Admission: 11/27/19 Attend Phys: Isaac Campos MD Discharge: Date of : 50 Report #: [id number] THIS REPORT FOR: cc: FAM - Family physician unknown FAM - Family physician unknown Vinnie Hebert MD ~ CC: DEREK unknown Isaac Campos DATE OF SERVICE: 11/27/2019 CHIEF COMPLAINT: Multiple skin ulcerations. HISTORY OF PRESENT ILLNESS: This is a 69-year-old female patient with super morbid obesity, hypertension, chronic kidney disease, who was admitted with lower extremity lymphedema and cellulitis, apparently living in a home setting that was apparently very unkempt. She was noted to be covered in bed bugs. She notes pain behind her knees bilaterally as well as amongst her abdominal skin folds and perineal region. PAST MEDICAL HISTORY: Positive for super morbid obesity, asthma, diabetes, hypertension, gastroesophageal reflux, carpal tunnel syndrome, sleep apnea, and congestive heart failure. SOCIAL HISTORY: Negative for current alcohol or tobacco use. She is and is accompanied by her who has been apparently her primary public speaking professor. MEDICATIONS: Veltassa, Tylenol, Xalatan, DuoNeb, albuterol, torsemide, Actos, Coreg, Amaryl, Lantus, Rayaldee, Breo Ellipta, Synthroid, Singulair. ALLERGIES: FLUTICASONE AND SALMETEROL. REVIEW OF SYSTEMS: CONSTITUTIONAL: The patient denies fever, chills, or weight loss. NEUROLOGICAL: The patient complains of generalized weakness. Denies focal weakness, numbness, or tingling. EYES: The patient denies visual changes, redness, or drainage. ENT: The patient denies earache, nasal drainage, sore throat. CARDIOVASCULAR: The patient denies chest pain, palpitations, or diaphoresis. PULMONARY: The patient denies cough or shortness of breath. GASTROINTESTINAL: The patient denies nausea, vomiting, diarrhea, or abdominal pain. She does have a skin breakdown in the skin folds beneath her breast and abdominal skin folds. GENITOURINARY: The patient does complain of some discomfort in the groin and perineal region from skin breakdown. Denies frequency or urgency. Denies dysuria. [address] [address] CONSULTATION Name: NELDA PERKINS Room #: 364-P [facility] IN M.R.#: [id number] Admission: 11/27/19 Attend Phys: Isaac Campos MD Discharge: Date of : 50 Report #: [id number] ORTHOPEDIC: The patient complains of swelling, pain, and ulceration posterior to the right knee. Other systems in a 14-point review of systems are negative. PHYSICAL EXAMINATION: VITAL SIGNS: At this time, include temperature not documented, pulse 75, respiratory rate of 20, blood pressure 135/59. GENERAL: This is a chronically ill-appearing female patient who appears to be in mild discomfort. HEENT: Head normocephalic. Nose and throat are clear. NECK: Supple. LUNGS: Diminished. HEART: Regular rhythm. ABDOMEN: Soft. There is intertrigo beneath the abdominal skin folds as well as beneath the inframammary folds. She has dermatitis in the groin and skin folds in the perineal region. EXTREMITIES: Lower extremities demonstrate chronic venous stasis dermatitis, several small crusts present on the pretibial region on the left side. She has an open ulceration within the skin folds of the right posterior popliteal region and some erythema to the left side. NEUROLOGIC: The patient is alert and moving all 4 extremities spontaneously. LABORATORY DATA: Sodium 132, potassium 5.0, chloride 100, CO2 of 22, BUN 10, creatinine of 3.1, glucose 270. White blood cell count 13.3 with a hemoglobin of 11.5. Albumin is 3.2. CLINICAL IMPRESSION: 1. Abdominal skin fold and inframammary intertrigo. 2. Perineal fungal dermatitis. 3. Venous type ulceration in the right popliteal fossa. 4. Super morbid obesity. 5. Type 2 diabetes mellitus. 6. Chronic renal insufficiency. 7. Unsanitary home environment with bed bugs. RECOMMENDATIONS: At this point in time, recommend some general perineal care. Recommend InterDry AG in the skin folds of the abdominal wall and inframammary folds and in the skin folds of the thighs and inguinal region. Recommend silver alginate to the popliteal fossa bilaterally including the ulcer on the right side. Recommend AmLactin lotion to the dry skin of both lower extremities and elevation. We will avoid compression at this time. She will need a low air loss mattress, q. 2 hour turning and repositioning, moisture barrier cream as needed to the gluteal sacral region. She will need ongoing nutritional support to enhance wound healing and optimize glycemic control. [facility] [address] [place] [address] CONSULTATION Name: NELDA PERKINS Room #: 364-P ADM IN M.Patrick.#: [id number] Admission: 11/27/19 Attend Phys: Isaac Campos MD Discharge: Date of : 50 Report #: [id number] I appreciate the opportunity to see her in consultation. We will continue to follow here in the hospital. <ELECTRONICALLY SIGNED> By: Vinnie Hebert MD 11/30/19 1534 1700 2042 Vinnie Hebert MD /nt
[2019-11-30 19:22] VITALS: BP 136/57
[2019-11-30 23:54] VITALS: BP 116/45
[2019-12-01 04:03] VITALS: BP 132/47
[2019-12-01 06:01] LABS: HEMATOCRIT 25.2 % (37.0-47.0); HEMOGLOBIN 8.4 gm/dL (12.0-15.0); MCH 36.7 pg (26.0-34.0); MCHC 33.3 g/dL (28.0-37.0); MCV 110.4 fL (80.0-100.0); RBC 2.28 mil/uL (4.20-5.00); RDW 14.4 % (10.5-14.5); WBC 7.2 thou/uL (4.0-11.0)
[2019-12-01 06:18] LABS: ALBUMIN 1.9 g/dL (3.4-5.0); CALCIUM 7.9 mg/dL (8.5-10.1); CREATININE 2.3 mg/dL (0.6-1.0); PHOSPHORUS 3.8 mg/dL (2.5-4.9)
[2019-12-01 08:33] VITALS: BP 118/49
[2019-12-01 12:11] VITALS: BP 140/52
[2019-12-01 16:41] VITALS: BP 137/60
[2019-12-01 19:30] VITALS: BP 126/55
[2019-12-02 04:26] VITALS: BP 157/46
[2019-12-02 08:42] VITALS: BP 151/49
[2019-12-02 12:30] VITALS: BP 154/60
[2019-12-02 17:23] VITALS: BP 159/49
[2019-12-02 19:36] VITALS: BP 159/56
[2019-12-03 04:22] VITALS: BP 148/52
[2019-12-03 07:56] VITALS: BP 145/46
[2019-12-03 12:04] VITALS: BP 154/55
[2019-12-03 15:23] VITALS: BP 154/55
[2019-12-03 19:47] VITALS: BP 156/53
[2019-12-04 05:37] VITALS: BP 133/48
[2019-12-04 08:06] VITALS: BP 156/66
[2019-12-04 11:22] VITALS: BP 150/59
[2019-12-04 12:46] LABS: HEMATOCRIT 26.1 % (37.0-47.0); HEMOGLOBIN 8.7 gm/dL (12.0-15.0); MCH 36.4 pg (26.0-34.0); MCHC 33.3 g/dL (28.0-37.0); MCV 109.3 fL (80.0-100.0); PLATELET COUNT 322 thou/uL (150-400); RBC 2.39 mil/uL (4.20-5.00); RDW 14.7 % (10.5-14.5); WBC 9.1 thou/uL (4.0-11.0)
[2019-12-04 12:54] LABS: CALCIUM 8.4 mg/dL (8.5-10.1); CREATININE 1.6 mg/dL (0.6-1.0); POTASSIUM 3.8 mmol/L (3.5-5.1)
[2019-12-04 13:17] LABS: ABSOLUTE NEUTROPHILS 6.7 thou/uL (1.4-8.2); ANISOCYTOSIS 1+; MACROCYTES 2+; METAMYELOCYTES 2 %; MYELOCYTES 2 %
[2019-12-04] MEDS ORDERED: AMOXICILLIN500 M1 PO (14:41)
[2019-12-04 16:32] VITALS: BP 150/59
== END 2019-12-04 20:28 | DRG 871 ==
LOC: ER 05:19 → EROBS 13:06 → 3W 13:06
PROVIDERS: Emergency Medicine; Emergency Medicine Emergency Medical Services; Hospitalist; Nurse Practitioner; Nurse Practitioner Family; Specialist; ADMIT Hospitalist
DX: A40.8 Other streptococcal sepsis (principal); J96.21 Acute and chronic respiratory failure with hypoxia; N17.9 Acute kidney failure, unspecified; E46 Unspecified protein-calorie malnutrition; I50.30 Unspecified diastolic (congestive) heart failure; L03.116 Cellulitis of left lower limb; L03.115 Cellulitis of right lower limb; N39.0 Urinary tract infection, site not specified; E87.1 Hypo-osmolality and hyponatremia; Z68.45 Body mass index [BMI] 70 or greater, adult; I13.0 Hypertensive heart and chronic kidney disease with heart failure and stage 1 through stage 4 chronic kidney disease, or unspecified chronic kidney disease; I25.10 Atherosclerotic heart disease of native coronary artery without angina pectoris; N18.9 Chronic kidney disease, unspecified; K21.9 Gastro-esophageal reflux disease without esophagitis; D64.9 Anemia, unspecified; G47.33 Obstructive sleep apnea (adult) (pediatric); E78.5 Hyperlipidemia, unspecified; B96.89 Other specified bacterial agents as the cause of diseases classified elsewhere; B36.9 Superficial mycosis, unspecified; E87.5 Hyperkalemia; G47.00 Insomnia, unspecified; E11.65 Type 2 diabetes mellitus with hyperglycemia; I95.9 Hypotension, unspecified; L30.4 Erythema intertrigo; E11.22 Type 2 diabetes mellitus with diabetic chronic kidney disease; J44.9 Chronic obstructive pulmonary disease, unspecified; E53.8 Deficiency of other specified B group vitamins; E66.01 Morbid (severe) obesity due to excess calories; Z88.8 Allergy status to other drugs, medicaments and biological substances; Z83.3 Family history of diabetes mellitus; Z82.49 Family history of ischemic heart disease and other diseases of the circulatory system; Z91.19 Patient's noncompliance with other medical treatment and regimen; Z79.82 Long term (current) use of aspirin; Z79.899 Other long term (current) drug therapy
CPT/HCPCS: 10879

== ENCOUNTER → 2021-01-14 | Outpatient (CLI) | payer OTHER ==
[~2021-01-14] MED LIST changes: +AMOXICILLIN500 M1 PO; +BUPROPION HCL100 MG PO; +CARVEDILOL25 MG PO; +GLIMEPIRIDE4 MG PO; +LIPITOR 40 MG T40 M1 PO
== END ==
LOC: SJCVC 12:42
PROVIDERS: ATTEND Internal Medicine Cardiovascular Disease
DX: I44.0 Atrioventricular block, first degree (principal); I25.10 Atherosclerotic heart disease of native coronary artery without angina pectoris; E78.5 Hyperlipidemia, unspecified; M17.11 Unilateral primary osteoarthritis, right knee; J45.909 Unspecified asthma, uncomplicated; E11.22 Type 2 diabetes mellitus with diabetic chronic kidney disease; I13.0 Hypertensive heart and chronic kidney disease with heart failure and stage 1 through stage 4 chronic kidney disease, or unspecified chronic kidney disease; I50.32 Chronic diastolic (congestive) heart failure; N18.9 Chronic kidney disease, unspecified; E66.01 Morbid (severe) obesity due to excess calories; G47.33 Obstructive sleep apnea (adult) (pediatric); E78.00 Pure hypercholesterolemia, unspecified; Z98.890 Other specified postprocedural states; Z88.8 Allergy status to other drugs, medicaments and biological substances; Z79.4 Long term (current) use of insulin; Z79.899 Other long term (current) drug therapy

== ENCOUNTER → 2021-08-05 | Outpatient (CLI) | payer OTHER | LOC: RAD 11:18 | PROVIDERS: ATTEND Family Medicine | DX: Z12.31 Encounter for screening mammogram for malignant neoplasm of breast (principal) ==

== ENCOUNTER → 2021-09-17 | Outpatient (CLI) | payer OTHER ==
[~2021-09-17] MED LIST changes: +ACETAMINOPHEN325 MG PO; +FAMOTIDINE 20 M20 MG PO; +SODIUM BICARBO650 M3 PO
== END ==
LOC: LAB 09:09
PROVIDERS: ATTEND Student in an Organized Health Care Education/Training Program
DX: Z01.812 Encounter for preprocedural laboratory examination (principal); Z20.822 Contact with and (suspected) exposure to COVID-19

== ENCOUNTER → 2021-09-19 | Outpatient (CLI) | payer OTHER ==
[~2021-09-19] VITALS: Ht 152.4 cm; Wt 142.4 kg
[2021-09-19 08:42] LABS: CALCIUM 8.9 mg/dL (8.5-10.1); CREATININE 2.5 mg/dL (0.6-1.0); POTASSIUM 4.2 mmol/L (3.5-5.1)
--- NOTE | 2021-09-23 12:07 | PATH ---
[facility] [address] [place] [address] PATHOLOGY RPT PROCEDURE Name: NELDA PERKINS Room #: REG CL Cayetano#: [id number] Admission: 09/19/21 Date of : 50 Discharge: Report #: [id number] Path Case #: [id number] [facility] Accession Number: [id number] . 01 Material submitted: . sigmoid colon - SIGMOID COLON POLYP . 01 Clinical history: . COLON CANCER SCREENING DIVERTICULOSIS, COLONOSCOPY . 01 Diagnosis: Colonic mucosa "sigmoid colon polyp biopsy: - Tubular adenoma. - There is no evidence of high-grade dysplasia or malignancy. (SHA:yanci; 09/22/2021) QMS 09/22/2021 1320 Local . 01 Electronically signed: . Jake Santizo MD, Pathologist NPI- [id number] . 01 Gross description: . The specimen is received in formalin, labeled "Casey, Nelda, sigmoid colon polyp" and consists of 2 bryan irregular tissues measuring 0.4 x 0.2 x 0.2 cm which are submitted in toto in A1.([place]; 09/19/2021) DKA/DKA 09/19/2021 1530 Local . 01 Pathologist provided ICD-10: D12.5 . 01 CPT . 110025 Specimen Comment: A courtesy copy of this report has been sent to [phone], [phone] Specimen Comment: [id number] Specimen Comment: Report sent to / DR HUTTON Specimen Comment: A duplicate report has been generated due to demographic updates. Performed at: [address], [place], [place] [id number] MD Jake Santizo MD Phone: [phone]
--- NOTE | 2021-09-24 08:49 | P ---
[facility] [place] [address] PROCEDURE REPORT Name: NELDA PERKINS Room #: REG [facility] [id number] Admission: 09/19/21 Attend Phys: Sherwin Patel Discharge: Date of : 50 Report #: [id number] THIS REPORT FOR: cc: Roque Ruelas MD, Kenneth L MD McElhinney, Christian C. MD ~ cc: Roque Ruelas DATE OF SERVICE: 09/19/2021 PROCEDURE PERFORMED: Colonoscopy with biopsies. HISTORY OF PRESENT ILLNESS: The patient is a 70-year-old female who presents today for screening colonoscopy. She denies any symptoms. No family history of colon cancer. The patient's last colonoscopy was greater than 10 years ago and reportedly negative. DESCRIPTION OF PROCEDURE: The risks and benefits of the procedure were explained to the patient, those risks including but not limited to bleeding, perforation and the risk of sedation. She understood these risks and gave informed consent. Sedation was given using propofol per Anesthesia. Next, a digital rectal exam was initially performed, which was normal. Next, using a standard Olympus colonoscope, the scope was placed in the patient's anus and advanced under direct vision to the cecum. The overall prep was good. The cecum and ileocecal valve were normal in appearance. The ascending, transverse and descending colon were normal. A few scattered diverticula were noted in the sigmoid colon. Also noted was a 4 mm sessile polyp. This was removed with cold forceps. The rectal mucosa was normal. On retroflexion, no abnormalities were noted. The scope was then withdrawn and the procedure terminated. The patient tolerated the procedure well. IMPRESSION: 1. Sigmoid diverticulosis. 2. Small sigmoid colon polyp. 3. Otherwise, normal colonoscopy. RECOMMENDATIONS: 1. Await biopsy results. 2. If polyp is adenomatous, repeat in 5 years; if hyperplastic, repeat in [address] [address] PROCEDURE REPORT Name: PERKINSNELDA ANGELI Room #: REG [facility]#: [id number] Admission: 09/19/21 Attend Phys: Sherwin Patel Discharge: Date of : 50 Report #: [id number] Thank you for allowing me to participate in her care. <ELECTRONICALLY SIGNED> By: Sherwin Tolliver MD 09/24/21 0849 0827 1812 Sherwin Tolliver MD /nt
== END | disposition home or self-care (01) ==
LOC: GI 07:36
PROVIDERS: Anesthesiology; ATTEND Specialist
DX: Z12.11 Encounter for screening for malignant neoplasm of colon (principal); D12.5 Benign neoplasm of sigmoid colon; K57.30 Diverticulosis of large intestine without perforation or abscess without bleeding; I13.0 Hypertensive heart and chronic kidney disease with heart failure and stage 1 through stage 4 chronic kidney disease, or unspecified chronic kidney disease; E11.22 Type 2 diabetes mellitus with diabetic chronic kidney disease; N18.4 Chronic kidney disease, stage 4 (severe); I50.9 Heart failure, unspecified; E78.00 Pure hypercholesterolemia, unspecified; J43.9 Emphysema, unspecified; F03.90 Unspecified dementia, unspecified severity, without behavioral disturbance, psychotic disturbance, mood disturbance, and anxiety; G47.30 Sleep apnea, unspecified; Z79.4 Long term (current) use of insulin; E03.9 Hypothyroidism, unspecified; Z98.890 Other specified postprocedural states; Z79.899 Other long term (current) drug therapy; Z88.8 Allergy status to other drugs, medicaments and biological substances
CPT/HCPCS: 62110; 62900